=== PATIENT | male | born 1955 | race Caucasian/White ===

== ENCOUNTER 2018-07-06 13:10 | Inpatient (IN) | payer MEDICARE, MEDICAID ==
[~2018-07-06] VITALS: Ht 177.8 cm; Wt 62.8 kg
[~2018-07-06 13:10] MED LIST: ASCO-316 PO; ATOR10TA69 MT; CLOP75TA33 MT; DARU600T PO; DOLU50TA MT; ELVI1TAB2 MT; EMTR1TAB12 MT; HYDR25TA MT; LOPE2CAP PO; MEMA10TA19 MT; METO-396 MT; NORV1 MT; SENN-170 MT; TAMS0.4C31 MT
[2018-07-06 14:40] LABS: BASOPHILS % 0.4 % (0.0-2.0); EOSINOPHILS % 0.8 % (0.0-5.0); HEMATOCRIT. 31.2 % (42.0-52.0); HEMOGLOBIN. 10.6 g/dL (14.0-18.0); LYMPHOCYTES % 25.2 % (20.0-50.0); MEAN CORPUSCULAR HEMOGLOBIN 33.4 pg (28.0-32.0); MEAN CORPUSCULAR VOLUME 98.5 fL (80.0-94.0); MEAN PLATELET VOLUME 7.8 fl (7.4-10.4); MONOCYTES % 8.5 % (2.0-8.0); NEUTROPHILS % 65.1 % (40.0-76.0); PLATELET 225 x1000/uL (130-400); RED BLOOD CELL COUNT 3.17 mill/uL (4.7-6.1); RED CELL DISTRIBUTION WIDTH 15.3 % (11.6-14.6)
[2018-07-06 14:46] LABS: CHLORIDE 96 mEq/L (98-107)
[2018-07-06 14:49] LABS: PARTIAL THROMBOPLASTIN TIME 40.1 sec (23.4-31.0); PROTHROMBIN TIME 10.5 sec (9.1-11.1)
[2018-07-06 14:50] LABS: ETHANOL BLOOD < 10 mg/dL
[2018-07-06 14:52] LABS: PHOSPHORUS 4.2 mg/dL (2.5-4.9)
[2018-07-07] MEDS ORDERED: ONDANSETRON HCL 4MG/2ML INJ IV PRN (01:30)
[2018-07-07] MEDS ORDERED: CLONIDINE 0.1MG TABLET PO PRN (01:30)
[2018-07-07] MEDS ORDERED: DIPHENHYDRAMINE 50MG/ML VIAL IV PRN (01:30)
[2018-07-07] MEDS ORDERED: ACETAMINOPHEN 325MG TABLET PO PRN (01:30)
[2018-07-07 03:00] VITALS: BP 129/83
[2018-07-07] MEDS: SODIUM CHLORIDE 0.9% INJ 3ML FLUSH IVF SCH ×3 (06:47→21:22)
[2018-07-07 08:00] VITALS: BP 126/55
[2018-07-07 08:08] VITALS: BP 126/55
[2018-07-07 11:33] VITALS: BP 109/38
[2018-07-07 13:12] LABS: BASOPHILS % 0.4 % (0.0-2.0); EOSINOPHILS % 0.5 % (0.0-5.0); HEMATOCRIT. 27.3 % (42.0-52.0); HEMOGLOBIN. 9.4 g/dL (14.0-18.0); LYMPHOCYTES % 34.6 % (20.0-50.0); MEAN CORPUSCULAR HEMOGLOBIN 33.6 pg (28.0-32.0); MEAN CORPUSCULAR VOLUME 97.8 fL (80.0-94.0); MEAN PLATELET VOLUME 7.4 fl (7.4-10.4); MONOCYTES % 8.3 % (2.0-8.0); NEUTROPHILS % 56.2 % (40.0-76.0); PLATELET 206 x1000/uL (130-400); RED BLOOD CELL COUNT 2.79 mill/uL (4.7-6.1); RED CELL DISTRIBUTION WIDTH 15.2 % (11.6-14.6)
[2018-07-07 15:33] VITALS: BP 128/38
[2018-07-07 20:00] VITALS: BP 120/50
[2018-07-08] VITALS (7 sets, daily range): BP systolic 114–151; BP diastolic 34–61
[2018-07-08] MEDS: SODIUM CHLORIDE 0.9% INJ 3ML FLUSH IVF SCH ×3 (06:08→23:10)
[2018-07-08 11:18] LABS: BASOPHILS % 0.4 % (0.0-2.0); EOSINOPHILS % 0.3 % (0.0-5.0); LYMPHOCYTES % 15.4 % (20.0-50.0); MEAN CORPUSCULAR HEMOGLOBIN 28.5 pg (28.0-32.0); MEAN CORPUSCULAR VOLUME 88.6 fL (80.0-94.0); MONOCYTES % 4.1 % (2.0-8.0); NEUTROPHILS % 79.8 % (40.0-76.0); PLATELET 95 x1000/uL (130-400); RED BLOOD CELL COUNT 2.29 mill/uL (4.7-6.1); RED CELL DISTRIBUTION WIDTH 19.5 % (11.6-14.6)
[2018-07-08 11:35] LABS: HEMATOCRIT. 20.3 % (42.0-52.0); HEMOGLOBIN. 6.5 g/dL (14.0-18.0)
[2018-07-08 13:50] LABS: HEMATOCRIT 29.7 % (42.0-52.0); HEMOGLOBIN 10.1 g/dL (14.0-18.0)
[2018-07-09] VITALS: BP 125/57
[2018-07-09 04:00] VITALS: BP 153/51
[2018-07-09] MEDS: SODIUM CHLORIDE 0.9% INJ 3ML FLUSH IVF SCH (06:00)
[2018-07-09 08:00] VITALS: BP 108/54
[2018-07-09 09:58] LABS: BASOPHILS % 0.4 % (0.0-2.0); EOSINOPHILS % 0.9 % (0.0-5.0); HEMOGLOBIN. 9.6 g/dL (14.0-18.0); LYMPHOCYTES % 28.4 % (20.0-50.0); MEAN CORPUSCULAR HEMOGLOBIN 33.6 pg (28.0-32.0); MEAN CORPUSCULAR VOLUME 97.7 fL (80.0-94.0); MEAN PLATELET VOLUME 7.9 fl (7.4-10.4); MONOCYTES % 5.4 % (2.0-8.0); NEUTROPHILS % 64.9 % (40.0-76.0); PLATELET 236 x1000/uL (130-400); RED BLOOD CELL COUNT 2.87 mill/uL (4.7-6.1); RED CELL DISTRIBUTION WIDTH 15.2 % (11.6-14.6)
[2018-07-09 10:37] VITALS: BP 108/54
== END 2018-07-09 11:51 | disposition home or self-care (01) | DRG 70 ==
LOC: ER 13:10 → 6WST 19:22 → EDBEDREQ 19:29 → EDBEDREQTM 19:29 → ENRESERV 07-07 00:58
PROVIDERS: ADMIT Internal Medicine; ATTEND Internal Medicine
PROC: 5A1D70Z Performance of Urinary Filtration, Intermittent, Less than 6 Hours Per Day (ICD-10-PCS; principal; 2018-07-09)
DX: G93.41 Metabolic encephalopathy (principal); N18.6 End stage renal disease; I12.0 Hypertensive chronic kidney disease with stage 5 chronic kidney disease or end stage renal disease; I95.9 Hypotension, unspecified; G90.8 Other disorders of autonomic nervous system; E11.22 Type 2 diabetes mellitus with diabetic chronic kidney disease; F48.8 Other specified nonpsychotic mental disorders; F03.90 Unspecified dementia, unspecified severity, without behavioral disturbance, psychotic disturbance, mood disturbance, and anxiety; Z79.899 Other long term (current) drug therapy; Z99.2 Dependence on renal dialysis; Z86.73 Personal history of transient ischemic attack (TIA), and cerebral infarction without residual deficits
CPT/HCPCS: 36415; 70551; 71045; 80048; 80051; 82962; 83735; 83880; 84100; 84484; 85014; 85018; 93005; 99285; C1893; G0482; A4315

== ENCOUNTER 2018-08-12 07:53 | Inpatient (IN) | payer MEDICARE, MEDICAID ==
[~2018-08-12] VITALS: Ht 152.4 cm; Wt 68.0 kg
[2018-08-12 10:38] LABS: PROTHROMBIN TIME 10.4 sec (9.1-11.1)
[2018-08-12 10:39] LABS: CHLORIDE 101 mEq/L (98-107)
[2018-08-12 10:43] LABS: EOSINOPHILS % 0.7 % (0.0-5.0); HEMATOCRIT. 21.1 % (42.0-52.0); HEMOGLOBIN. 7.3 g/dL (14.0-18.0); LYMPHOCYTES % 36.9 % (20.0-50.0); MEAN PLATELET VOLUME 7.6 fl (7.4-10.4); MONOCYTES % 7.5 % (2.0-8.0); NEUTROPHILS % 53.9 % (40.0-76.0); PLATELET 363 x1000/uL (130-400); RED BLOOD CELL COUNT 2.13 mill/uL (4.7-6.1); RED CELL DISTRIBUTION WIDTH 15.7 % (11.6-14.6)
[2018-08-12] MEDS ORDERED: CLONIDINE 0.1MG TABLET PO PRN (13:15)
[2018-08-12] MEDS ORDERED: DIPHENHYDRAMINE 50MG/ML VIAL IV PRN (13:15)
[2018-08-12] MEDS ORDERED: GUAIFENESIN 200MG/10ML SUGAR FREE UDC PO PRN (13:15)
[2018-08-12] MEDS ORDERED: ONDANSETRON HCL 4MG/2ML INJ IV PRN (13:15)
[2018-08-12] MEDS ORDERED: ACETAMINOPHEN 325MG TABLET PO PRN (13:15)
[2018-08-12] MEDS ORDERED: MAGNESIUM/ALUMINUM HYDROXIDE/SIMETHICONE 30ML UDC PO PRN (13:15)
[2018-08-12 13:51] LABS: TOTAL IRON BINDING CAPACITY 167 ug/dL (250-450)
[2018-08-12 18:31] LABS: HEMATOCRIT 24.8 % (42.0-52.0); HEMOGLOBIN 8.3 g/dL (14.0-18.0)
[2018-08-12] MEDS ORDERED: HYDROCODONE/ACETAMINOPHEN 5/325MG TABLET PO PRN (18:45)
[2018-08-13] VITALS: BP 125/44
[2018-08-13 00:18] VITALS: BP 125/50
[2018-08-13 04:00] VITALS: BP 118/46
[2018-08-13 06:08] LABS: HEMATOCRIT. 25.2 % (42.0-52.0); MEAN CORPUSCULAR HEMOGLOBIN 32.4 pg (28.0-32.0); MEAN CORPUSCULAR VOLUME 95.8 fL (80.0-94.0); MEAN PLATELET VOLUME 7.3 fl (7.4-10.4); PLATELET 380 x1000/uL (130-400); RED BLOOD CELL COUNT 2.64 mill/uL (4.7-6.1); RED CELL DISTRIBUTION WIDTH 17.3 % (11.6-14.6)
[2018-08-13 06:59] LABS: HEMOGLOBIN. 8.5 g/dL (14.0-18.0)
[2018-08-13] MEDS: ASCORBIC ACID 500 MG TABLET PO SCH (08:04)
[2018-08-13] MEDS: CLOPIDOGREL 75MG TABLET PO SCH (08:04)
[2018-08-13] MEDS: RITONAVIR 100 MG TABLET PO SCH (08:05)
[2018-08-13] MEDS: DARUNAVIR ETHANOLATE 800 MG TABLET PO SCH (08:05)
[2018-08-13 08:13] LABS: PHOSPHORUS 5.1 mg/dL (2.5-4.9)
[2018-08-13 12:00] VITALS: BP 128/51
[2018-08-13 14:15] LABS: PLATELET ESTIMATE NORMAL
[2018-08-13 16:00] VITALS: BP 126/61
[2018-08-13 20:00] VITALS: BP 132/65
[2018-08-13] MEDS ORDERED: ATORVASTATIN CALCIUM 10MG TABLET PO SCH (21:00)
[2018-08-13] MEDS ORDERED: EPOETIN ALFA 10000UNITS/ML VIAL SUBCUT SCH (21:00)
[2018-08-13] MEDS: SODIUM CHLORIDE 0.9% INJ 3ML FLUSH IVF SCH (22:20)
[2018-08-13] MEDS: GABAPENTIN 100MG CAPSULE PO SCH (22:21)
[2018-08-14] VITALS: BP 118/54
[2018-08-14 04:00] VITALS: BP 101/56
[2018-08-14] MEDS: GABAPENTIN 100MG CAPSULE PO SCH ×2 (05:49→13:31)
[2018-08-14] MEDS: SODIUM CHLORIDE 0.9% INJ 3ML FLUSH IVF SCH ×2 (05:49→13:31)
[2018-08-14 08:29] VITALS: BP 114/66
[2018-08-14] MEDS: CLOPIDOGREL 75MG TABLET PO SCH (10:34)
[2018-08-14] MEDS: RITONAVIR 100 MG TABLET PO SCH (10:34)
[2018-08-14] MEDS: DARUNAVIR ETHANOLATE 800 MG TABLET PO SCH (10:34)
[2018-08-14] MEDS: ASCORBIC ACID 500 MG TABLET PO SCH (10:34)
[2018-08-14 12:00] VITALS: BP 116/52
[2018-08-14 14:38] VITALS: BP 116/52
== END 2018-08-14 17:45 | disposition home or self-care (01) | DRG 314 ==
LOC: ER 08:48 → 8WST 11:06 → ENRESERV 22:17
PROVIDERS: ADMIT Internal Medicine; ATTEND Internal Medicine
PROC: 30233N1 Transfusion of Nonautologous Red Blood Cells into Peripheral Vein, Percutaneous Approach (ICD-10-PCS; principal; 2018-08-12)
PROC: 5A1D70Z Performance of Urinary Filtration, Intermittent, Less than 6 Hours Per Day (ICD-10-PCS; 2018-08-13)
DX: T82.868A Thrombosis due to vascular prosthetic devices, implants and grafts, initial encounter (principal); N18.6 End stage renal disease; E46 Unspecified protein-calorie malnutrition; I12.0 Hypertensive chronic kidney disease with stage 5 chronic kidney disease or end stage renal disease; D64.9 Anemia, unspecified; Z99.2 Dependence on renal dialysis; E11.22 Type 2 diabetes mellitus with diabetic chronic kidney disease; E78.5 Hyperlipidemia, unspecified; L97.529 Non-pressure chronic ulcer of other part of left foot with unspecified severity; F03.90 Unspecified dementia, unspecified severity, without behavioral disturbance, psychotic disturbance, mood disturbance, and anxiety; N40.0 Benign prostatic hyperplasia without lower urinary tract symptoms; Y83.8 Other surgical procedures as the cause of abnormal reaction of the patient, or of later complication, without mention of misadventure at the time of the procedure; Y92.89 Other specified places as the place of occurrence of the external cause; Z86.73 Personal history of transient ischemic attack (TIA), and cerebral infarction without residual deficits; Z68.29 Body mass index [BMI] 29.0-29.9, adult; Z79.4 Long term (current) use of insulin
CPT/HCPCS: 36415; 36430; 76870; 80048; 82962; 83540; 83550; 83735; 84100; 85014; 85018; 86850; 86900; 86920; 93005; 93923; 93976; 99285; A6261; J0885; J1200; P9016

== ENCOUNTER 2018-09-20 16:33 | Emergency (ER) | payer MEDICARE, MEDICAID ==
[~2018-09-20] VITALS: Ht 170.2 cm; Wt 70.0 kg
[2018-09-20 18:53] LABS: BASOPHILS % 0.4 % (0.0-2.0); EOSINOPHILS % 0.6 % (0.0-5.0); HEMATOCRIT. 32.3 % (42.0-52.0); LYMPHOCYTES % 46.4 % (20.0-50.0); MEAN CORPUSCULAR HEMOGLOBIN 33.8 pg (28.0-32.0); MEAN CORPUSCULAR VOLUME 99.5 fL (80.0-94.0); MEAN PLATELET VOLUME 6.8 fl (7.4-10.4); MONOCYTES % 10.5 % (2.0-8.0); NEUTROPHILS % 42.1 % (40.0-76.0); PLATELET 230 x1000/uL (130-400); RED BLOOD CELL COUNT 3.25 mill/uL (4.7-6.1); RED CELL DISTRIBUTION WIDTH 16.3 % (11.6-14.6)
[2018-09-20 18:57] LABS: CHLORIDE 98 mEq/L (98-107)
[2018-09-21 01:00] VITALS: BP 121/70
== END 2018-09-21 01:00 | disposition home or self-care (01) ==
LOC: ER 16:33
DX: S80.02XA Contusion of left knee, initial encounter (principal); R55 Syncope and collapse; F03.90 Unspecified dementia, unspecified severity, without behavioral disturbance, psychotic disturbance, mood disturbance, and anxiety; I12.0 Hypertensive chronic kidney disease with stage 5 chronic kidney disease or end stage renal disease; E11.22 Type 2 diabetes mellitus with diabetic chronic kidney disease; N18.6 End stage renal disease; Z99.2 Dependence on renal dialysis; W18.39XA Other fall on same level, initial encounter; Y93.89 Activity, other specified; Y92.89 Other specified places as the place of occurrence of the external cause; Y99.8 Other external cause status; Z79.899 Other long term (current) drug therapy
CPT/HCPCS: 36415; 71045; 73562; 82962; 83880; 84484; 93005; 99284

== ENCOUNTER → 2019-05-02 | Emergency (ER) | payer MEDICARE, MEDICAID ==
[~2019-05-02] VITALS: Ht 172.7 cm; Wt 77.0 kg
[~2019-05-02] MED LIST changes: +ACETAMINOPHEN 325MG TABLET PO ONE; +SODIUM CHLORIDE 0.9% 500 ML IV ONE
[2019-05-02 13:30] VITALS: BP 100/55
== END | disposition left against medical advice (07) ==
LOC: ER 08:45
DX: S32.592A Other specified fracture of left pubis, initial encounter for closed fracture (principal); M86.8X7 Other osteomyelitis, ankle and foot; E11.22 Type 2 diabetes mellitus with diabetic chronic kidney disease; I13.11 Hypertensive heart and chronic kidney disease without heart failure, with stage 5 chronic kidney disease, or end stage renal disease; N18.6 End stage renal disease; Z99.2 Dependence on renal dialysis; W05.0XXA Fall from non-moving wheelchair, initial encounter; Y93.89 Activity, other specified; Y92.89 Other specified places as the place of occurrence of the external cause
CPT/HCPCS: 73522; 73590; 73610; 73630; 99284; J7030

== ENCOUNTER 2019-05-18 21:19 | Inpatient (IN) | payer MEDICARE, MEDICAID ==
[~2019-05-18] VITALS: Ht 177.8 cm; Wt 72.6 kg
[~2019-05-18 21:19] MED LIST changes: -ACETAMINOPHEN 325MG TABLET PO ONE; -MEMA10TA19 MT; +MEMA10TA55 MT; -SODIUM CHLORIDE 0.9% 500 ML IV ONE
[2019-05-18] MEDS ORDERED: ONDANSETRON HCL 4MG/2ML INJ IV ONE (22:30)
[2019-05-18] MEDS ORDERED: MORPHINE SULFATE 4 MG/ML CPJ (NOT FOR IM USE) IV ONE (22:30)
[2019-05-18 22:44] LABS: BASOPHILS % 0.4 % (0.0-2.0); EOSINOPHILS % 0.7 % (0.0-5.0); HEMATOCRIT. 29.8 % (42.0-52.0); HEMOGLOBIN. 10.2 g/dL (14.0-18.0); LYMPHOCYTES % 33.3 % (20.0-50.0); MEAN CORPUSCULAR HEMOGLOBIN 33.4 pg (28.0-32.0); MEAN CORPUSCULAR VOLUME 97.6 fL (80.0-94.0); MEAN PLATELET VOLUME 7.3 fl (7.4-10.4); MONOCYTES % 6.6 % (2.0-8.0); PLATELET 254 x1000/uL (130-400); RED BLOOD CELL COUNT 3.06 mill/uL (4.7-6.1); RED CELL DISTRIBUTION WIDTH 15.4 % (11.6-14.6)
[2019-05-18 22:51] LABS: CHLORIDE 102 mEq/L (98-107); INR 1.1; PROTHROMBIN TIME 11.4 sec (9.6-11.0)
[2019-05-18] MEDS ORDERED: DEXTROSE 50% WATER 50ML SYRINGE IV ONE (23:30)
[2019-05-18] MEDS ORDERED: SODIUM BICARBONATE 8.4% 1 MEQ/ML 50ML SYR IV ONE (23:30)
[2019-05-18] MEDS ORDERED: INSULIN REGULAR (HUMULIN R) 300UNITS/3ML IV ONE (23:30)
[2019-05-18] MEDS ORDERED: CALCIUM CHLORIDE 1GM/10ML SYR IV ONE (23:30)
[2019-05-18] MEDS ORDERED: MAGNESIUM/ALUMINUM HYDROXIDE/SIMETHICONE 30ML UDC PO PRN (23:45)
[2019-05-18] MEDS ORDERED: HYDROCODONE/ACETAMINOPHEN 5/325MG TABLET PO PRN (23:45)
[2019-05-18] MEDS ORDERED: CLONIDINE 0.1MG TABLET PO PRN (23:45)
[2019-05-18] MEDS ORDERED: MORPHINE SULFATE 2 MG/ML CPJ (NOT FOR IM USE) IV PRN (23:45)
[2019-05-19 03:09] VITALS: BP 122/50
[2019-05-19] MEDS ORDERED: SODIUM CHLORIDE 0.9% 500 ML IV ONE (08:00)
[2019-05-19 08:26] VITALS: BP 79/18
[2019-05-19] MEDS: ASPIRIN 81MG EC TABLET PO SCH (08:55)
[2019-05-19] MEDS: THIAMINE HCL 100MG TABLET PO SCH (08:56)
[2019-05-19 12:32] VITALS: BP 84/28
[2019-05-19] MEDS: ENOXAPARIN 30MG/0.3ML SYR SUBCUT SCH (13:17)
[2019-05-19] MEDS ORDERED: DEXTROSE 50% WATER 50ML SYRINGE IV PRN (15:45)
[2019-05-19 16:08] VITALS: BP 92/30
[2019-05-19] MEDS: MIDODRINE HCL 5MG TABLET PO SCH (16:20)
[2019-05-19] MEDS: BLOOD SUGAR DIAGNOSTIC STRIP TEST SCH ×2 (17:20→20:38)
[2019-05-19] MEDS: INSULIN LISPRO 100 UNITS/ML SUBCUT SCH ×2 (18:11→20:38)
[2019-05-19 20:00] VITALS: BP 98/41
[2019-05-19 20:51] VITALS: BP 98/41
[2019-05-20] VITALS: BP 90/24
[2019-05-20 04:00] VITALS: BP 88/37
[2019-05-20 06:10] LABS: BASOPHILS % 0.5 % (0.0-2.0); EOSINOPHILS % 0.2 % (0.0-5.0); HEMATOCRIT. 31.9 % (42.0-52.0); HEMOGLOBIN. 10.6 g/dL (14.0-18.0); LYMPHOCYTES % 32.8 % (20.0-50.0); MEAN CORPUSCULAR HEMOGLOBIN 33.4 pg (28.0-32.0); MEAN CORPUSCULAR VOLUME 100.1 fL (80.0-94.0); MEAN PLATELET VOLUME 8.3 fl (7.4-10.4); NEUTROPHILS % 59.5 % (40.0-76.0); PLATELET 255 x1000/uL (130-400); RED BLOOD CELL COUNT 3.19 mill/uL (4.7-6.1); RED CELL DISTRIBUTION WIDTH 15.8 % (11.6-14.6)
[2019-05-20] MEDS: BLOOD SUGAR DIAGNOSTIC STRIP TEST SCH ×4 (06:36→20:43)
[2019-05-20] MEDS: INSULIN LISPRO 100 UNITS/ML SUBCUT SCH ×4 (07:50→20:43)
[2019-05-20 08:00] VITALS: BP 107/35
[2019-05-20] MEDS: MIDODRINE HCL 5MG TABLET PO SCH ×3 (10:28→17:57)
[2019-05-20] MEDS: ASPIRIN 81MG EC TABLET PO SCH (10:28)
[2019-05-20] MEDS: THIAMINE HCL 100MG TABLET PO SCH (10:28)
[2019-05-20] MEDS: ENOXAPARIN 30MG/0.3ML SYR SUBCUT SCH (10:29)
[2019-05-20 12:00] VITALS: BP 114/23
[2019-05-20 16:00] VITALS: BP 83/39
[2019-05-20] MEDS ORDERED: DIATR MEGLU/DIATRIZOATE SOLN 30ML PO SCH (18:00)
[2019-05-20 20:00] VITALS: BP 93/30
[2019-05-21] VITALS: BP 91/28
[2019-05-21 04:00] VITALS: BP 93/33
[2019-05-21] MEDS: BLOOD SUGAR DIAGNOSTIC STRIP TEST SCH ×4 (06:24→21:00)
[2019-05-21 06:37] LABS: BASOPHILS % 0.5 % (0.0-2.0); EOSINOPHILS % 0.8 % (0.0-5.0); HEMATOCRIT. 28.7 % (42.0-52.0); LYMPHOCYTES % 30.9 % (20.0-50.0); MEAN CORPUSCULAR HEMOGLOBIN 33.2 pg (28.0-32.0); MEAN CORPUSCULAR VOLUME 95.3 fL (80.0-94.0); MEAN PLATELET VOLUME 8.1 fl (7.4-10.4); MONOCYTES % 8.4 % (2.0-8.0); NEUTROPHILS % 59.4 % (40.0-76.0); PLATELET 252 x1000/uL (130-400); RED BLOOD CELL COUNT 3.02 mill/uL (4.7-6.1); RED CELL DISTRIBUTION WIDTH 15.5 % (11.6-14.6)
[2019-05-21] MEDS: INSULIN LISPRO 100 UNITS/ML SUBCUT SCH ×4 (07:50→20:41)
[2019-05-21 08:00] VITALS: BP 122/27
[2019-05-21] MEDS: MIDODRINE HCL 5MG TABLET PO SCH ×3 (10:09→18:02)
[2019-05-21] MEDS: FOLIC ACID/VITAMIN B COMP W-C TABLET PO SCH (10:09)
[2019-05-21] MEDS: ENOXAPARIN 30MG/0.3ML SYR SUBCUT SCH (10:10)
[2019-05-21] MEDS: THIAMINE HCL 100MG TABLET PO SCH (10:10)
[2019-05-21] MEDS: ASPIRIN 81MG EC TABLET PO SCH (10:16)
[2019-05-21 12:00] VITALS: BP 99/29
[2019-05-21 13:10] LABS: HIV 1 ABS Positive (Negative); HIV 2 ABS Negative (Negative); HIV SCREEN 4G Reactive (Non Reactive); INTERPRETATION HIV-1 Positive (.)
[2019-05-21 16:00] VITALS: BP 100/30
[2019-05-21 20:00] VITALS: BP 97/71
[2019-05-21] MEDS: LORAZEPAM 2MG/ML CPJ IV PRN (20:42)
[2019-05-22] VITALS: BP 75/25
[2019-05-22] MEDS: SODIUM CHLORIDE 0.9% 1,000 ML IV SCH (00:23)
[2019-05-22 04:00] VITALS: BP 94/32
[2019-05-22] MEDS: BLOOD SUGAR DIAGNOSTIC STRIP TEST SCH ×4 (06:16→21:00)
[2019-05-22] MEDS: INSULIN LISPRO 100 UNITS/ML SUBCUT SCH ×4 (07:50→22:50)
[2019-05-22 08:00] VITALS: BP 97/14
[2019-05-22 09:06] LABS: ABSOLUTE LYMPHOCYTES 1.1 x10E3/uL (0.7-3.1); ABSOLUTE MONOCYTES 0.4 x10E3/uL (0.1-0.9); ABSOLUTE NEUTROPHILS 3.7 x10E3/uL (1.4-7.0); BASOPHILS 0 % (Not Estab.); HEMATOCRIT 27.5 % (37.5-51.0); HEMOGLOBIN 8.9 g/dL (13.0-17.7); IMMATURE GRANULOCYTES 0 % (Not Estab.); LYMPHOCYTES 21 % (Not Estab.); MEAN CORPUSCULAR HEMOGLOBIN 31.1 pg (26.6-33.0); MEAN CORPUSCULAR HGB CONC. 32.4 g/dL (31.5-35.7); MEAN CORPUSCULAR VOLUME 96 fL (79-97); MONOCYTES 8 % (Not Estab.); NEUTROPHILS 70 % (Not Estab.); PLATELETS 283 x10E3/uL (150-450); RBC 2.86 x10E6/uL (4.14-5.80); RED CELL DISTRIBUTION WIDTH 15.3 % (12.3-15.4); WBC 5.3 x10E3/uL (3.4-10.8)
[2019-05-22] MEDS: ASPIRIN 81MG EC TABLET PO SCH (09:12)
[2019-05-22] MEDS: ENOXAPARIN 30MG/0.3ML SYR SUBCUT SCH (09:12)
[2019-05-22] MEDS: FOLIC ACID/VITAMIN B COMP W-C TABLET PO SCH (09:12)
[2019-05-22] MEDS: THIAMINE HCL 100MG TABLET PO SCH (09:12)
[2019-05-22] MEDS: MIDODRINE HCL 5MG TABLET PO SCH ×3 (09:13→17:45)
[2019-05-22 12:00] VITALS: BP 91/23
[2019-05-22 13:10] LABS: % CD 3 POS. LYMPHOCYTES 78.1 % (57.5-86.2); % CD 4 POS. LYMPHOCYTES 27.1 % (30.8-58.5); % CD 8 POS. LYMPH 51.2 % (12.0-35.5); ABSOLUTE CD 3 859 /uL (622-2402); ABSOLUTE CD 4 HELPER 298 /uL (359-1519); ABSOLUTE CD 8 SUPPRESSOR 563 /uL (109-897); CD4/CD8 RATIO 0.53 (0.92-3.72)
[2019-05-22 16:00] VITALS: BP 85/23
[2019-05-22] MEDS ORDERED: ALBUMIN HUMAN 25GM/100ML (25%) IV SCH (18:00)
[2019-05-22 20:00] VITALS: BP 156/108
[2019-05-23] VITALS: BP 102/45
[2019-05-23] MEDS: SODIUM CHLORIDE 0.9% 1,000 ML IV SCH
[2019-05-23 04:00] VITALS: BP 99/45
[2019-05-23] MEDS: BLOOD SUGAR DIAGNOSTIC STRIP TEST SCH ×4 (06:36→20:58)
[2019-05-23 06:55] LABS: BASOPHILS % 0.3 % (0.0-2.0); EOSINOPHILS % 0.3 % (0.0-5.0); HEMATOCRIT. 27.5 % (42.0-52.0); HEMOGLOBIN. 9.5 g/dL (14.0-18.0); LYMPHOCYTES % 32.9 % (20.0-50.0); MEAN CORPUSCULAR HEMOGLOBIN 33.4 pg (28.0-32.0); MEAN CORPUSCULAR VOLUME 96.4 fL (80.0-94.0); MEAN PLATELET VOLUME 8.4 fl (7.4-10.4); MONOCYTES % 10.7 % (2.0-8.0); NEUTROPHILS % 55.8 % (40.0-76.0); PLATELET 285 x1000/uL (130-400); RED BLOOD CELL COUNT 2.85 mill/uL (4.7-6.1); RED CELL DISTRIBUTION WIDTH 16.1 % (11.6-14.6)
[2019-05-23] MEDS: INSULIN LISPRO 100 UNITS/ML SUBCUT SCH ×4 (07:44→20:58)
[2019-05-23 08:00] VITALS: BP 95/30
[2019-05-23] MEDS: ASPIRIN 81MG EC TABLET PO SCH (08:06)
[2019-05-23] MEDS: FOLIC ACID/VITAMIN B COMP W-C TABLET PO SCH (08:06)
[2019-05-23] MEDS: THIAMINE HCL 100MG TABLET PO SCH (08:06)
[2019-05-23] MEDS: MIDODRINE HCL 5MG TABLET PO SCH ×4 (08:07→17:35)
[2019-05-23] MEDS: ENOXAPARIN 30MG/0.3ML SYR SUBCUT SCH (08:07)
[2019-05-23 12:00] VITALS: BP 92/46
[2019-05-23] MEDS: RISPERIDONE 1MG TABLET PO SCH (12:45)
[2019-05-23] MEDS: LORAZEPAM 2MG/ML CPJ IV PRN (14:08)
[2019-05-23 16:00] VITALS: BP_SYST 149; BP_SYST 97; BP_DIAS 39; BP_DIAS 57
[2019-05-23 20:00] VITALS: BP 97/36
[2019-05-23] MEDS: CARVEDILOL 3.125 MG TABLET PO SCH (20:57)
[2019-05-24] VITALS (21 sets, daily range): BP systolic 44–139; BP diastolic 22–94
[2019-05-24] MEDS: BLOOD SUGAR DIAGNOSTIC STRIP TEST SCH ×4 (06:40→22:30)
[2019-05-24] MEDS: INSULIN LISPRO 100 UNITS/ML SUBCUT SCH ×4 (07:50→21:00)
[2019-05-24] MEDS: CARVEDILOL 3.125 MG TABLET PO SCH ×2 (09:00→23:00)
[2019-05-24] MEDS: THIAMINE HCL 100MG TABLET PO SCH (09:38)
[2019-05-24] MEDS: RISPERIDONE 1MG TABLET PO SCH (09:38)
[2019-05-24] MEDS: FOLIC ACID/VITAMIN B COMP W-C TABLET PO SCH (09:38)
[2019-05-24] MEDS: ASPIRIN 81MG EC TABLET PO SCH (09:38)
[2019-05-24] MEDS: MIDODRINE HCL 5MG TABLET PO SCH ×3 (09:38→19:31)
[2019-05-24] MEDS: ENOXAPARIN 30MG/0.3ML SYR SUBCUT SCH (09:39)
[2019-05-24 18:32] LABS: BASOPHILS % 0.2 % (0.0-2.0); EOSINOPHILS % 0.2 % (0.0-5.0); HEMATOCRIT. 28.2 % (42.0-52.0); HEMOGLOBIN. 9.6 g/dL (14.0-18.0); LYMPHOCYTES % 19.4 % (20.0-50.0); MEAN CORPUSCULAR HEMOGLOBIN 33.1 pg (28.0-32.0); MEAN CORPUSCULAR VOLUME 97.5 fL (80.0-94.0); MEAN PLATELET VOLUME 8.9 fl (7.4-10.4); MONOCYTES % 8.7 % (2.0-8.0); NEUTROPHILS % 71.5 % (40.0-76.0); PLATELET 265 x1000/uL (130-400); RED BLOOD CELL COUNT 2.89 mill/uL (4.7-6.1)
[2019-05-24] MEDS ORDERED: DIGOXIN 500MCG/2ML AMP IV NR ×2 (21:45→22:30)
[2019-05-24 22:09] LABS: BG BASE EXCESS 0.4 mmol/L (-2.0-2.0); BG DEOXYHEMOGLOBIN 0.5 % (0.0-5.0); BG FRACTION INSPIRED OXYGEN 100; BG METHEMOGLOBIN 0.3 % (0.0-1.5); BG OXYGEN SATURATION 99.5 % (92.0-98.5); BG OXYHEMOGLOBIN 99.2 % (94.0-97.0); BG PCO2 22.6 mmHg (35.0-45.0); BG PH 7.587 (7.350-7.450); BG PO2 418.7 mmHg (75.0-100.0); BG SAMPLE SITE RIGHT RADIAL; BG TOTAL HEMOGLOBIN 10.4 g/dL (12.0-18.0); BG VENT MODE MASK - NRB
[2019-05-24] MEDS ORDERED: VASOPRESSIN 10 UNIT in SODIUM CHLORIDE 0.9% 99.5 ML IV PRN (22:30)
[2019-05-24] MEDS ORDERED: SODIUM CHLORIDE 0.9% 500 ML IV NR (22:30)
[2019-05-24] MEDS: SODIUM CHLORIDE 0.9% 1,000 ML IV SCH (22:52)
[2019-05-24] MEDS: PHENYLEPHRINE 40 MG in DEXT 5% WATER 246 ML IV PRN (22:56)
[2019-05-24] MEDS ORDERED: ADENOSINE 3 MG/ML 2ML VIAL IV NR (23:15)
[2019-05-24] MEDS ORDERED: SODIUM CHLORIDE 0.9% 500 ML IV ONE (23:30)
[2019-05-25] VITALS (80 sets, daily range): BP systolic 29–158; BP diastolic 15–120
[2019-05-25] MEDS ORDERED: NOREPINEPHRINE 4MG/250ML PMX 250 ML IV PRN (00:15)
[2019-05-25] MEDS ORDERED: NOREPINEPHRINE 4 MG in DEXTROSE 5% WATER 250 ML IV PRN (00:30)
[2019-05-25] MEDS: PHENYLEPHRINE 40 MG in DEXT 5% WATER 246 ML IV PRN ×3 (03:26→21:39)
[2019-05-25] MEDS: NOREPINEPHRINE 16 MG in DEXT 5% WATER 234 ML IV PRN ×3 (03:26→21:42)
[2019-05-25 06:17] LABS: BASOPHILS % 0.2 % (0.0-2.0); EOSINOPHILS % 0.1 % (0.0-5.0); HEMATOCRIT. 28.5 % (42.0-52.0); HEMOGLOBIN. 9.7 g/dL (14.0-18.0); LYMPHOCYTES % 21.4 % (20.0-50.0); MEAN CORPUSCULAR HEMOGLOBIN 33.5 pg (28.0-32.0); MEAN CORPUSCULAR VOLUME 98.4 fL (80.0-94.0); MEAN PLATELET VOLUME 8.6 fl (7.4-10.4); MONOCYTES % 7.4 % (2.0-8.0); NEUTROPHILS % 70.9 % (40.0-76.0); PLATELET 263 x1000/uL (130-400); RED CELL DISTRIBUTION WIDTH 15.6 % (11.6-14.6)
[2019-05-25 06:24] LABS: CHLORIDE 103 mEq/L (98-107)
[2019-05-25] MEDS: CARVEDILOL 3.125 MG TABLET PO SCH ×2 (08:43→21:00)
[2019-05-25] MEDS: BLOOD SUGAR DIAGNOSTIC STRIP TEST SCH ×4 (08:50→21:19)
[2019-05-25] MEDS: THIAMINE HCL 100MG TABLET PO SCH (09:00)
[2019-05-25] MEDS: ASPIRIN 81MG EC TABLET PO SCH (09:00)
[2019-05-25] MEDS: FOLIC ACID/VITAMIN B COMP W-C TABLET PO SCH (09:00)
[2019-05-25] MEDS: ENOXAPARIN 30MG/0.3ML SYR SUBCUT SCH (09:12)
[2019-05-25] MEDS: INSULIN LISPRO 100 UNITS/ML SUBCUT SCH ×4 (09:16→21:45)
[2019-05-25] MEDS: MIDODRINE HCL 5MG TABLET PO SCH ×3 (09:20→17:00)
[2019-05-25] MEDS: RISPERIDONE 1MG TABLET PO SCH (09:32)
[2019-05-25] MEDS: SODIUM CHLORIDE 0.9% 1,000 ML IV SCH (09:54)
[2019-05-25] MEDS ORDERED: PIPERACILLIN/TAZOBACTAM 3.375 G in DEXT 5% WATER 100 ML IV SCH (10:45)
[2019-05-25] MEDS: PIPERACILLIN/TAZOBACTAM 2.25 G in DEXTROSE 5% WATER 50 ML IV SCH ×2 (14:19→22:41)
[2019-05-25] MEDS ORDERED: DIGOXIN 500MCG/2ML AMP IV NR (19:10)
[2019-05-25] MEDS ORDERED: DIGOXIN 500MCG/2ML AMP IV PRN (21:15)
[2019-05-26] VITALS (93 sets, daily range): BP systolic 66–143; BP diastolic 23–98
[2019-05-26] MEDS: PHENYLEPHRINE 40 MG in DEXT 5% WATER 246 ML IV PRN ×3 (04:50→17:36)
[2019-05-26] MEDS: PIPERACILLIN/TAZOBACTAM 2.25 G in DEXTROSE 5% WATER 50 ML IV SCH ×3 (05:22→21:36)
[2019-05-26 06:28] LABS: BASOPHILS % 0.3 % (0.0-2.0); EOSINOPHILS % 0.3 % (0.0-5.0); HEMATOCRIT. 31.4 % (42.0-52.0); HEMOGLOBIN. 10.4 g/dL (14.0-18.0); LYMPHOCYTES % 28.9 % (20.0-50.0); MEAN CORPUSCULAR HEMOGLOBIN 33.1 pg (28.0-32.0); MEAN CORPUSCULAR VOLUME 99.5 fL (80.0-94.0); MEAN PLATELET VOLUME 9.2 fl (7.4-10.4); MONOCYTES % 8.7 % (2.0-8.0); NEUTROPHILS % 61.8 % (40.0-76.0); PLATELET 184 x1000/uL (130-400); RED BLOOD CELL COUNT 3.15 mill/uL (4.7-6.1); RED CELL DISTRIBUTION WIDTH 15.9 % (11.6-14.6)
[2019-05-26] MEDS: CARVEDILOL 3.125 MG TABLET PO SCH ×2 (08:17→21:00)
[2019-05-26] MEDS: BLOOD SUGAR DIAGNOSTIC STRIP TEST SCH ×4 (08:17→21:21)
[2019-05-26] MEDS: THIAMINE HCL 100MG TABLET PO SCH (08:33)
[2019-05-26] MEDS: ASPIRIN 81MG EC TABLET PO SCH (08:33)
[2019-05-26] MEDS: FOLIC ACID/VITAMIN B COMP W-C TABLET PO SCH (08:33)
[2019-05-26] MEDS: MIDODRINE HCL 5MG TABLET PO SCH ×3 (08:33→17:22)
[2019-05-26] MEDS: ENOXAPARIN 30MG/0.3ML SYR SUBCUT SCH (08:34)
[2019-05-26] MEDS: INSULIN LISPRO 100 UNITS/ML SUBCUT SCH ×4 (08:34→21:00)
[2019-05-26] MEDS ORDERED: SODIUM POLYSTYRENE SULFONATE 15 G/60 ML BOT PO NR (10:30)
[2019-05-26] MEDS: SODIUM CHLORIDE 0.9% 1,000 ML IV SCH (13:15)
[2019-05-26] MEDS: NOREPINEPHRINE 16 MG in DEXT 5% WATER 234 ML IV PRN (17:36)
[2019-05-26] MEDS: BUDESONIDE 0.5MG/2ML NEB HHN SCH (20:06)
[2019-05-27] VITALS (75 sets, daily range): BP systolic 67–182; BP diastolic 24–121
[2019-05-27] MEDS: PHENYLEPHRINE 40 MG in DEXT 5% WATER 246 ML IV PRN ×3 (01:12→13:25)
[2019-05-27] MEDS: PIPERACILLIN/TAZOBACTAM 2.25 G in DEXTROSE 5% WATER 50 ML IV SCH ×3 (06:37→21:46)
[2019-05-27 07:13] LABS: BASOPHILS % 0.3 % (0.0-2.0); EOSINOPHILS % 0.1 % (0.0-5.0); HEMATOCRIT. 36.6 % (42.0-52.0); HEMOGLOBIN. 11.9 g/dL (14.0-18.0); LYMPHOCYTES % 21.9 % (20.0-50.0); MEAN CORPUSCULAR HEMOGLOBIN 32.9 pg (28.0-32.0); MEAN CORPUSCULAR VOLUME 101.2 fL (80.0-94.0); MEAN PLATELET VOLUME 9.8 fl (7.4-10.4); NEUTROPHILS % 63.7 % (40.0-76.0); PLATELET 183 x1000/uL (130-400); RED BLOOD CELL COUNT 3.62 mill/uL (4.7-6.1); RED CELL DISTRIBUTION WIDTH 16.2 % (11.6-14.6)
[2019-05-27] MEDS: IPRATROPIUM/ALBUTEROL 0.5-3(2.5)MG/3ML NEB HHN PRN ×2 (08:06→21:24)
[2019-05-27] MEDS: BUDESONIDE 0.5MG/2ML NEB HHN SCH ×2 (08:06→21:24)
[2019-05-27] MEDS: BLOOD SUGAR DIAGNOSTIC STRIP TEST SCH ×4 (08:06→20:29)
[2019-05-27] MEDS: THIAMINE HCL 100MG TABLET PO SCH (08:33)
[2019-05-27] MEDS: MIDODRINE HCL 5MG TABLET PO SCH ×3 (08:33→18:38)
[2019-05-27] MEDS: ASPIRIN 81MG EC TABLET PO SCH (08:34)
[2019-05-27] MEDS: FOLIC ACID/VITAMIN B COMP W-C TABLET PO SCH (08:34)
[2019-05-27] MEDS: ENOXAPARIN 30MG/0.3ML SYR SUBCUT SCH (08:34)
[2019-05-27] MEDS: CARVEDILOL 3.125 MG TABLET PO SCH ×2 (08:36→21:45)
[2019-05-27] MEDS: INSULIN LISPRO 100 UNITS/ML SUBCUT SCH ×4 (08:36→20:30)
[2019-05-28] VITALS (71 sets, daily range): BP systolic 58–196; BP diastolic 24–103
[2019-05-28] MEDS: PHENYLEPHRINE 40 MG in DEXT 5% WATER 246 ML IV PRN ×3 (03:51→15:25)
[2019-05-28] MEDS: PIPERACILLIN/TAZOBACTAM 2.25 G in DEXTROSE 5% WATER 50 ML IV SCH ×3 (05:45→21:45)
[2019-05-28 07:58] LABS: BASOPHILS % 0.3 % (0.0-2.0); EOSINOPHILS % 0.8 % (0.0-5.0); HEMATOCRIT. 30.8 % (42.0-52.0); HEMOGLOBIN. 10.3 g/dL (14.0-18.0); LYMPHOCYTES % 21.7 % (20.0-50.0); MEAN CORPUSCULAR HEMOGLOBIN 33.2 pg (28.0-32.0); MEAN PLATELET VOLUME 9.7 fl (7.4-10.4); MONOCYTES % 10.7 % (2.0-8.0); NEUTROPHILS % 66.5 % (40.0-76.0); PLATELET 154 x1000/uL (130-400); RED BLOOD CELL COUNT 3.11 mill/uL (4.7-6.1); RED CELL DISTRIBUTION WIDTH 16.1 % (11.6-14.6)
[2019-05-28] MEDS: BUDESONIDE 0.5MG/2ML NEB HHN SCH (08:05)
[2019-05-28] MEDS: INSULIN LISPRO 100 UNITS/ML SUBCUT SCH ×4 (08:20→21:00)
[2019-05-28] MEDS: BLOOD SUGAR DIAGNOSTIC STRIP TEST SCH ×4 (08:40→21:03)
[2019-05-28] MEDS: CARVEDILOL 3.125 MG TABLET PO SCH ×2 (08:41→21:15)
[2019-05-28] MEDS: FOLIC ACID/VITAMIN B COMP W-C TABLET PO SCH (08:49)
[2019-05-28] MEDS: ENOXAPARIN 30MG/0.3ML SYR SUBCUT SCH (08:49)
[2019-05-28] MEDS: MIDODRINE HCL 5MG TABLET PO SCH ×3 (08:49→17:10)
[2019-05-28] MEDS: ASPIRIN 81MG EC TABLET PO SCH (08:49)
[2019-05-28] MEDS: THIAMINE HCL 100MG TABLET PO SCH (08:49)
[2019-05-28] MEDS ORDERED: PHENYLEPHRINE 40 MG in DEXT 5% WATER 500 ML IV PRN (18:23)
[2019-05-28] MEDS: SODIUM CHLORIDE 0.9% 1,000 ML IV SCH (19:15)
[2019-05-28] MEDS: PHENYLEPHRINE 80 MG in DEXT 5% WATER 492 ML IV PRN (22:02)
[2019-05-29] VITALS (77 sets, daily range): BP systolic 58–146; BP diastolic 21–101
[2019-05-29] MEDS: PIPERACILLIN/TAZOBACTAM 2.25 G in DEXTROSE 5% WATER 50 ML IV SCH ×3 (05:36→21:10)
[2019-05-29 06:35] LABS: BASOPHILS % 0.2 % (0.0-2.0); EOSINOPHILS % 0.6 % (0.0-5.0); HEMATOCRIT. 28.3 % (42.0-52.0); HEMOGLOBIN. 9.6 g/dL (14.0-18.0); LYMPHOCYTES % 30.4 % (20.0-50.0); MEAN CORPUSCULAR HEMOGLOBIN 33.3 pg (28.0-32.0); MEAN CORPUSCULAR VOLUME 98.3 fL (80.0-94.0); MEAN PLATELET VOLUME 9.9 fl (7.4-10.4); MONOCYTES % 10.1 % (2.0-8.0); NEUTROPHILS % 58.7 % (40.0-76.0); PLATELET 138 x1000/uL (130-400); RED BLOOD CELL COUNT 2.88 mill/uL (4.7-6.1); RED CELL DISTRIBUTION WIDTH 16.1 % (11.6-14.6)
[2019-05-29] MEDS: BLOOD SUGAR DIAGNOSTIC STRIP TEST SCH ×4 (07:50→21:09)
[2019-05-29] MEDS: INSULIN LISPRO 100 UNITS/ML SUBCUT SCH ×4 (08:16→21:00)
[2019-05-29] MEDS: CARVEDILOL 3.125 MG TABLET PO SCH ×2 (09:00→21:00)
[2019-05-29] MEDS: BUDESONIDE 0.5MG/2ML NEB HHN SCH ×2 (09:33→20:51)
[2019-05-29] MEDS: PHENYLEPHRINE 80 MG in DEXT 5% WATER 492 ML IV PRN ×2 (10:06→21:15)
[2019-05-29] MEDS: MIDODRINE HCL 5MG TABLET PO SCH ×3 (11:17→17:00)
[2019-05-29] MEDS: FOLIC ACID/VITAMIN B COMP W-C TABLET PO SCH (11:23)
[2019-05-29] MEDS: THIAMINE HCL 100MG TABLET PO SCH (11:23)
[2019-05-29] MEDS: ASPIRIN 81MG EC TABLET PO SCH (11:23)
[2019-05-29] MEDS: ENOXAPARIN 30MG/0.3ML SYR SUBCUT SCH (11:26)
[2019-05-29] MEDS: SODIUM CHLORIDE 0.9% 1,000 ML IV SCH (16:55)
[2019-05-30] VITALS (81 sets, daily range): BP systolic 64–167; BP diastolic 16–73
[2019-05-30] MEDS: PIPERACILLIN/TAZOBACTAM 2.25 G in DEXTROSE 5% WATER 50 ML IV SCH ×3 (05:35→22:26)
[2019-05-30 05:57] LABS: BASOPHILS % 0.4 % (0.0-2.0); EOSINOPHILS % 0.2 % (0.0-5.0); HEMATOCRIT. 26.8 % (42.0-52.0); HEMOGLOBIN. 9.3 g/dL (14.0-18.0); LYMPHOCYTES % 21.8 % (20.0-50.0); MEAN CORPUSCULAR HEMOGLOBIN 33.9 pg (28.0-32.0); MEAN CORPUSCULAR VOLUME 97.9 fL (80.0-94.0); MEAN PLATELET VOLUME 9.8 fl (7.4-10.4); MONOCYTES % 8.6 % (2.0-8.0); PLATELET 124 x1000/uL (130-400); RED BLOOD CELL COUNT 2.74 mill/uL (4.7-6.1); RED CELL DISTRIBUTION WIDTH 17.1 % (11.6-14.6)
[2019-05-30] MEDS: PHENYLEPHRINE 80 MG in DEXT 5% WATER 492 ML IV PRN (06:57)
[2019-05-30] MEDS: BLOOD SUGAR DIAGNOSTIC STRIP TEST SCH ×4 (07:50→21:55)
[2019-05-30] MEDS: ENOXAPARIN 30MG/0.3ML SYR SUBCUT SCH (08:54)
[2019-05-30] MEDS: FOLIC ACID/VITAMIN B COMP W-C TABLET PO SCH (08:54)
[2019-05-30] MEDS: MIDODRINE HCL 5MG TABLET PO SCH ×3 (08:54→22:25)
[2019-05-30] MEDS: THIAMINE HCL 100MG TABLET PO SCH (08:55)
[2019-05-30] MEDS: ASPIRIN 81MG EC TABLET PO SCH (08:55)
[2019-05-30] MEDS: CARVEDILOL 3.125 MG TABLET PO SCH ×2 (08:55→21:00)
[2019-05-30] MEDS: INSULIN LISPRO 100 UNITS/ML SUBCUT SCH ×4 (08:56→21:00)
[2019-05-30] MEDS ORDERED: PHENYLEPHRINE 80 MG in DEXT 5% WATER 492 ML IV PRN (10:32)
[2019-05-30] MEDS: SODIUM CHLORIDE 0.9% 1,000 ML IV SCH ×3 (11:46→11:48)
[2019-05-30 13:16] LABS: TOTAL IRON BINDING CAPACITY 166 ug/dL (250-450)
[2019-05-30] MEDS: PHENYLEPHRINE 80 MG in DEXT 5% WATER 500 ML IV PRN (18:01)
[2019-05-31] VITALS (92 sets, daily range): BP systolic 41–154; BP diastolic 23–112
[2019-05-31] MEDS: SODIUM CHLORIDE 0.9% 1,000 ML IV SCH (05:44)
[2019-05-31] MEDS: PIPERACILLIN/TAZOBACTAM 2.25 G in DEXTROSE 5% WATER 50 ML IV SCH ×3 (06:09→21:33)
[2019-05-31] MEDS: MIDODRINE HCL 5MG TABLET PO SCH ×3 (06:38→22:00)
[2019-05-31] MEDS: BLOOD SUGAR DIAGNOSTIC STRIP TEST SCH ×4 (07:59→21:26)
[2019-05-31] MEDS: INSULIN LISPRO 100 UNITS/ML SUBCUT SCH ×4 (08:00→21:00)
[2019-05-31] MEDS: THIAMINE HCL 100MG TABLET PO SCH (08:00)
[2019-05-31] MEDS: ASPIRIN 81MG EC TABLET PO SCH (08:00)
[2019-05-31] MEDS: FOLIC ACID/VITAMIN B COMP W-C TABLET PO SCH (08:00)
[2019-05-31] MEDS: ENOXAPARIN 30MG/0.3ML SYR SUBCUT SCH (08:00)
[2019-05-31] MEDS: CARVEDILOL 3.125 MG TABLET PO SCH ×2 (08:34→20:06)
[2019-05-31 10:01] LABS: BASOPHILS % 0.3 % (0.0-2.0); EOSINOPHILS % 0.4 % (0.0-5.0); HEMATOCRIT. 24.7 % (42.0-52.0); HEMOGLOBIN. 8.3 g/dL (14.0-18.0); LYMPHOCYTES % 22.2 % (20.0-50.0); MEAN CORPUSCULAR HEMOGLOBIN 33.7 pg (28.0-32.0); MEAN CORPUSCULAR VOLUME 99.9 fL (80.0-94.0); MEAN PLATELET VOLUME 9.7 fl (7.4-10.4); MONOCYTES % 6.9 % (2.0-8.0); NEUTROPHILS % 70.2 % (40.0-76.0); PLATELET 104 x1000/uL (130-400); RED BLOOD CELL COUNT 2.48 mill/uL (4.7-6.1)
[2019-05-31] MEDS: PHENYLEPHRINE 80 MG in DEXT 5% WATER 500 ML IV PRN (13:03)
[2019-05-31] MEDS ORDERED: POTASSIUM CHLORIDE 20MEQ TABLET SR PO NR (14:30)
[2019-05-31] MEDS: FLUDROCORTISONE ACETATE 0.1MG TABLET PO SCH (14:48)
[2019-05-31] MEDS: ONDANSETRON HCL 4MG/2ML INJ IV PRN (19:16)
[2019-06-01] VITALS (60 sets, daily range): BP systolic 64–158; BP diastolic 16–125
[2019-06-01] MEDS: ONDANSETRON HCL 4MG/2ML INJ IV PRN (02:34)
[2019-06-01] MEDS: SODIUM CHLORIDE 0.9% 1,000 ML IV SCH (02:35)
[2019-06-01] MEDS: PIPERACILLIN/TAZOBACTAM 2.25 G in DEXTROSE 5% WATER 50 ML IV SCH ×3 (05:17→22:56)
[2019-06-01] MEDS: MIDODRINE HCL 5MG TABLET PO SCH ×3 (05:18→22:22)
[2019-06-01 06:54] LABS: HEMOGLOBIN 9.6 g/dL (14.0-18.0); MEAN CORPUSCULAR HEMOGLOBIN 33.4 pg (28.0-32.0); MEAN CORPUSCULAR VOLUME 100.8 fL (80.0-94.0); PLATELET 105 x1000/uL (130-400); RED BLOOD CELL COUNT 2.88 mill/uL (4.7-6.1)
[2019-06-01 07:01] LABS: CHLORIDE 109 mEq/L (98-107)
[2019-06-01] MEDS: BLOOD SUGAR DIAGNOSTIC STRIP TEST SCH ×4 (07:45→21:17)
[2019-06-01] MEDS: INSULIN LISPRO 100 UNITS/ML SUBCUT SCH ×4 (08:14→21:22)
[2019-06-01] MEDS: FLUDROCORTISONE ACETATE 0.1MG TABLET PO SCH (08:15)
[2019-06-01] MEDS: THIAMINE HCL 100MG TABLET PO SCH (08:15)
[2019-06-01] MEDS: ENOXAPARIN 30MG/0.3ML SYR SUBCUT SCH (08:15)
[2019-06-01] MEDS: ASPIRIN 81MG EC TABLET PO SCH (08:15)
[2019-06-01] MEDS: FOLIC ACID/VITAMIN B COMP W-C TABLET PO SCH (08:15)
[2019-06-01] MEDS: CARVEDILOL 3.125 MG TABLET PO SCH ×2 (08:32→21:21)
[2019-06-01] MEDS ORDERED: PHENYLEPHRINE 80 MG in DEXT 5% WATER 492 ML IV PRN (17:32)
[2019-06-02] VITALS (26 sets, daily range): BP systolic 70–144; BP diastolic 31–90
[2019-06-02] MEDS: MIDODRINE HCL 5MG TABLET PO SCH ×3 (06:27→21:31)
[2019-06-02] MEDS: BLOOD SUGAR DIAGNOSTIC STRIP TEST SCH ×4 (07:30→21:29)
[2019-06-02] MEDS: INSULIN LISPRO 100 UNITS/ML SUBCUT SCH ×4 (07:31→21:31)
[2019-06-02] MEDS: ASPIRIN 81MG EC TABLET PO SCH (08:07)
[2019-06-02] MEDS: FLUDROCORTISONE ACETATE 0.1MG TABLET PO SCH (08:07)
[2019-06-02] MEDS: THIAMINE HCL 100MG TABLET PO SCH (08:07)
[2019-06-02] MEDS: CARVEDILOL 3.125 MG TABLET PO SCH ×2 (08:08→21:37)
[2019-06-02] MEDS: FOLIC ACID/VITAMIN B COMP W-C TABLET PO SCH (08:10)
[2019-06-02 09:54] LABS: BASOPHILS % 0.5 % (0.0-2.0); EOSINOPHILS % 1.3 % (0.0-5.0); HEMATOCRIT. 30.6 % (42.0-52.0); HEMOGLOBIN. 9.9 g/dL (14.0-18.0); LYMPHOCYTES % 30.1 % (20.0-50.0); MEAN CORPUSCULAR HEMOGLOBIN 33.1 pg (28.0-32.0); MEAN CORPUSCULAR VOLUME 102.4 fL (80.0-94.0); MEAN PLATELET VOLUME 9.5 fl (7.4-10.4); MONOCYTES % 5.7 % (2.0-8.0); NEUTROPHILS % 62.4 % (40.0-76.0); PLATELET 102 x1000/uL (130-400); RED BLOOD CELL COUNT 2.99 mill/uL (4.7-6.1); RED CELL DISTRIBUTION WIDTH 18.6 % (11.6-14.6)
[2019-06-02] MEDS ORDERED: POTASSIUM CHLORIDE 20MEQ/PACKET PO NR (10:30)
[2019-06-02] MEDS: ENOXAPARIN 30MG/0.3ML SYR SUBCUT SCH (11:06)
[2019-06-02] MEDS ORDERED: HYDROCODONE/ACETAMINOPHEN 5/325MG TABLET PO PRN (11:30)
[2019-06-03] VITALS (42 sets, daily range): BP systolic 70–150; BP diastolic 24–108
[2019-06-03] MEDS: MORPHINE SULFATE 2 MG/ML CPJ (NOT FOR IM USE) IV PRN (02:51)
[2019-06-03] MEDS: MIDODRINE HCL 5MG TABLET PO SCH ×3 (06:01→21:22)
[2019-06-03 07:10] LABS: TOTAL IRON BINDING CAPACITY 181 ug/dL (250-450)
[2019-06-03] MEDS: BLOOD SUGAR DIAGNOSTIC STRIP TEST SCH ×4 (08:07→20:49)
[2019-06-03] MEDS: INSULIN LISPRO 100 UNITS/ML SUBCUT SCH ×4 (08:07→20:44)
[2019-06-03] MEDS: CARVEDILOL 3.125 MG TABLET PO SCH ×2 (08:39→21:22)
[2019-06-03] MEDS: ENOXAPARIN 30MG/0.3ML SYR SUBCUT SCH (08:39)
[2019-06-03] MEDS: FLUDROCORTISONE ACETATE 0.1MG TABLET PO SCH (08:40)
[2019-06-03] MEDS: ASPIRIN 81MG EC TABLET PO SCH (08:40)
[2019-06-03] MEDS: FOLIC ACID/VITAMIN B COMP W-C TABLET PO SCH (08:40)
[2019-06-03] MEDS: THIAMINE HCL 100MG TABLET PO SCH (08:40)
[2019-06-04] VITALS (51 sets, daily range): BP systolic 67–140; BP diastolic 18–110
[2019-06-04] MEDS: MIDODRINE HCL 5MG TABLET PO SCH ×3 (05:25→21:14)
[2019-06-04 06:04] LABS: BASOPHILS % 0.5 % (0.0-2.0); EOSINOPHILS % 0.9 % (0.0-5.0); HEMATOCRIT. 29.9 % (42.0-52.0); HEMOGLOBIN. 9.9 g/dL (14.0-18.0); LYMPHOCYTES % 36.8 % (20.0-50.0); MEAN CORPUSCULAR HEMOGLOBIN 33.8 pg (28.0-32.0); MEAN CORPUSCULAR VOLUME 102.4 fL (80.0-94.0); MEAN PLATELET VOLUME 9.3 fl (7.4-10.4); MONOCYTES % 7.1 % (2.0-8.0); NEUTROPHILS % 54.7 % (40.0-76.0); PLATELET 111 x1000/uL (130-400); RED BLOOD CELL COUNT 2.92 mill/uL (4.7-6.1); RED CELL DISTRIBUTION WIDTH 20.8 % (11.6-14.6)
[2019-06-04] MEDS: BLOOD SUGAR DIAGNOSTIC STRIP TEST SCH ×4 (07:50→21:12)
[2019-06-04] MEDS: INSULIN LISPRO 100 UNITS/ML SUBCUT SCH ×4 (08:20→21:12)
[2019-06-04] MEDS: THIAMINE HCL 100MG TABLET PO SCH (09:06)
[2019-06-04] MEDS: CARVEDILOL 3.125 MG TABLET PO SCH ×2 (09:06→21:11)
[2019-06-04] MEDS: FLUDROCORTISONE ACETATE 0.1MG TABLET PO SCH (09:07)
[2019-06-04] MEDS: FOLIC ACID/VITAMIN B COMP W-C TABLET PO SCH (09:07)
[2019-06-04] MEDS: ENOXAPARIN 30MG/0.3ML SYR SUBCUT SCH (09:07)
[2019-06-04] MEDS: ASPIRIN 81MG EC TABLET PO SCH (09:07)
[2019-06-05] VITALS (30 sets, daily range): BP systolic 94–142; BP diastolic 17–76
[2019-06-05] MEDS: MORPHINE SULFATE 2 MG/ML CPJ (NOT FOR IM USE) IV PRN (02:09)
[2019-06-05] MEDS: MIDODRINE HCL 5MG TABLET PO SCH ×3 (05:29→21:21)
[2019-06-05 06:01] LABS: BASOPHILS % 1.3 % (0.0-2.0); EOSINOPHILS % 0.5 % (0.0-5.0); HEMATOCRIT. 29.5 % (42.0-52.0); HEMOGLOBIN. 9.7 g/dL (14.0-18.0); LYMPHOCYTES % 39.2 % (20.0-50.0); MEAN CORPUSCULAR HEMOGLOBIN 34.1 pg (28.0-32.0); MEAN CORPUSCULAR VOLUME 104.2 fL (80.0-94.0); MONOCYTES % 6.1 % (2.0-8.0); NEUTROPHILS % 52.9 % (40.0-76.0); PLATELET 97 x1000/uL (130-400); RED BLOOD CELL COUNT 2.83 mill/uL (4.7-6.1); RED CELL DISTRIBUTION WIDTH 22.7 % (11.6-14.6)
[2019-06-05 06:15] LABS: PHOSPHORUS 4.8 mg/dL (2.5-4.9)
[2019-06-05] MEDS: BLOOD SUGAR DIAGNOSTIC STRIP TEST SCH ×4 (07:50→21:13)
[2019-06-05] MEDS: INSULIN LISPRO 100 UNITS/ML SUBCUT SCH ×4 (08:20→21:23)
[2019-06-05] MEDS: ASPIRIN 81MG EC TABLET PO SCH (08:49)
[2019-06-05] MEDS: CARVEDILOL 3.125 MG TABLET PO SCH ×2 (08:49→21:00)
[2019-06-05] MEDS: THIAMINE HCL 100MG TABLET PO SCH (08:49)
[2019-06-05] MEDS: FLUDROCORTISONE ACETATE 0.1MG TABLET PO SCH (08:49)
[2019-06-05] MEDS: FOLIC ACID/VITAMIN B COMP W-C TABLET PO SCH (08:49)
[2019-06-05] MEDS: ENOXAPARIN 30MG/0.3ML SYR SUBCUT SCH (08:50)
[2019-06-05] MEDS: EPOETIN ALFA 4000UNITS/ML VIAL SUBCUT SCH (21:21)
[2019-06-06] VITALS (7 sets, daily range): BP systolic 96–148; BP diastolic 35–73
[2019-06-06 06:53] LABS: BASOPHILS % 0.4 % (0.0-2.0); EOSINOPHILS % 0.3 % (0.0-5.0); HEMATOCRIT. 29.9 % (42.0-52.0); HEMOGLOBIN. 10.1 g/dL (14.0-18.0); LYMPHOCYTES % 49.9 % (20.0-50.0); MEAN CORPUSCULAR HEMOGLOBIN 34.4 pg (28.0-32.0); MEAN CORPUSCULAR VOLUME 101.9 fL (80.0-94.0); MEAN PLATELET VOLUME 9.2 fl (7.4-10.4); MONOCYTES % 7.8 % (2.0-8.0); NEUTROPHILS % 41.6 % (40.0-76.0); PLATELET 124 x1000/uL (130-400); RED BLOOD CELL COUNT 2.93 mill/uL (4.7-6.1); RED CELL DISTRIBUTION WIDTH 21.3 % (11.6-14.6)
[2019-06-06] MEDS: BLOOD SUGAR DIAGNOSTIC STRIP TEST SCH ×4 (08:34→21:21)
[2019-06-06] MEDS: CARVEDILOL 3.125 MG TABLET PO SCH ×2 (08:48→21:00)
[2019-06-06] MEDS: FOLIC ACID/VITAMIN B COMP W-C TABLET PO SCH (08:48)
[2019-06-06] MEDS: ENOXAPARIN 30MG/0.3ML SYR SUBCUT SCH (08:48)
[2019-06-06] MEDS: THIAMINE HCL 100MG TABLET PO SCH (08:49)
[2019-06-06] MEDS: ASPIRIN 81MG EC TABLET PO SCH (08:49)
[2019-06-06] MEDS: FLUDROCORTISONE ACETATE 0.1MG TABLET PO SCH (08:49)
[2019-06-06] MEDS: MIDODRINE HCL 5MG TABLET PO SCH ×3 (08:57→21:27)
[2019-06-06] MEDS: INSULIN LISPRO 100 UNITS/ML SUBCUT SCH ×4 (08:58→21:00)
[2019-06-07] VITALS: BP 140/42
[2019-06-07 04:00] VITALS: BP 117/40
[2019-06-07] MEDS: MIDODRINE HCL 5MG TABLET PO SCH ×3 (06:07→20:35)
[2019-06-07 07:13] LABS: BASOPHILS % 0.7 % (0.0-2.0); EOSINOPHILS % 0.6 % (0.0-5.0); HEMATOCRIT. 31.4 % (42.0-52.0); HEMOGLOBIN. 10.4 g/dL (14.0-18.0); LYMPHOCYTES % 52.5 % (20.0-50.0); MEAN CORPUSCULAR HEMOGLOBIN 34.2 pg (28.0-32.0); MEAN CORPUSCULAR VOLUME 103.5 fL (80.0-94.0); MONOCYTES % 8.3 % (2.0-8.0); NEUTROPHILS % 37.9 % (40.0-76.0); PLATELET 132 x1000/uL (130-400); RED BLOOD CELL COUNT 3.04 mill/uL (4.7-6.1); RED CELL DISTRIBUTION WIDTH 22.9 % (11.6-14.6)
[2019-06-07] MEDS: INSULIN LISPRO 100 UNITS/ML SUBCUT SCH ×4 (07:26→21:00)
[2019-06-07] MEDS: BLOOD SUGAR DIAGNOSTIC STRIP TEST SCH ×4 (07:26→20:12)
[2019-06-07 08:00] VITALS: BP 115/52
[2019-06-07] MEDS: ENOXAPARIN 30MG/0.3ML SYR SUBCUT SCH (08:56)
[2019-06-07] MEDS: ASPIRIN 81MG EC TABLET PO SCH (08:56)
[2019-06-07] MEDS: CARVEDILOL 3.125 MG TABLET PO SCH ×2 (08:58→20:34)
[2019-06-07] MEDS: FOLIC ACID/VITAMIN B COMP W-C TABLET PO SCH (08:59)
[2019-06-07] MEDS: THIAMINE HCL 100MG TABLET PO SCH (08:59)
[2019-06-07] MEDS: FLUDROCORTISONE ACETATE 0.1MG TABLET PO SCH (08:59)
[2019-06-07 12:00] VITALS: BP 114/44
[2019-06-07 12:18] LABS: PLATELET ESTIMATE NORMAL
[2019-06-07 16:00] VITALS: BP 110/31
[2019-06-07 20:00] VITALS: BP 122/48
[2019-06-08] VITALS: BP 103/41
[2019-06-08 04:00] VITALS: BP 119/42
[2019-06-08] MEDS: BLOOD SUGAR DIAGNOSTIC STRIP TEST SCH ×4 (05:22→21:11)
[2019-06-08] MEDS: MIDODRINE HCL 5MG TABLET PO SCH ×3 (06:22→22:00)
[2019-06-08 07:14] LABS: BASOPHILS % 0.6 % (0.0-2.0); EOSINOPHILS % 0.5 % (0.0-5.0); HEMOGLOBIN. 11.2 g/dL (14.0-18.0); LYMPHOCYTES % 52.8 % (20.0-50.0); MEAN CORPUSCULAR HEMOGLOBIN 34.8 pg (28.0-32.0); MEAN CORPUSCULAR VOLUME 102.4 fL (80.0-94.0); MEAN PLATELET VOLUME 9.1 fl (7.4-10.4); MONOCYTES % 8.4 % (2.0-8.0); NEUTROPHILS % 37.7 % (40.0-76.0); PLATELET 138 x1000/uL (130-400); RED BLOOD CELL COUNT 3.22 mill/uL (4.7-6.1)
[2019-06-08 08:00] VITALS: BP 130/46
[2019-06-08] MEDS: INSULIN LISPRO 100 UNITS/ML SUBCUT SCH ×4 (08:10→21:11)
[2019-06-08] MEDS: CARVEDILOL 3.125 MG TABLET PO SCH ×2 (09:41→21:00)
[2019-06-08] MEDS: FOLIC ACID/VITAMIN B COMP W-C TABLET PO SCH (09:41)
[2019-06-08] MEDS: THIAMINE HCL 100MG TABLET PO SCH (09:41)
[2019-06-08] MEDS: ASPIRIN 81MG EC TABLET PO SCH (09:41)
[2019-06-08] MEDS: FLUDROCORTISONE ACETATE 0.1MG TABLET PO SCH (09:41)
[2019-06-08 12:00] VITALS: BP 109/50
[2019-06-08 13:19] LABS: BASOPHILS % 0.7 % (0.0-2.0); EOSINOPHILS % 0.8 % (0.0-5.0); HEMOGLOBIN. 10.3 g/dL (14.0-18.0); LYMPHOCYTES % 49.2 % (20.0-50.0); MEAN CORPUSCULAR HEMOGLOBIN 34.3 pg (28.0-32.0); MEAN CORPUSCULAR VOLUME 103.5 fL (80.0-94.0); MEAN PLATELET VOLUME 8.8 fl (7.4-10.4); MONOCYTES % 8.7 % (2.0-8.0); NEUTROPHILS % 40.6 % (40.0-76.0); PLATELET 134 x1000/uL (130-400); RED BLOOD CELL COUNT 2.99 mill/uL (4.7-6.1); RED CELL DISTRIBUTION WIDTH 22.9 % (11.6-14.6)
[2019-06-08 16:00] VITALS: BP 108/56
[2019-06-08 20:00] VITALS: BP 109/31
[2019-06-09] VITALS: BP 132/36
[2019-06-09 04:00] VITALS: BP 117/38
[2019-06-09] MEDS: MIDODRINE HCL 5MG TABLET PO SCH ×3 (06:07→21:44)
[2019-06-09] MEDS: BLOOD SUGAR DIAGNOSTIC STRIP TEST SCH ×4 (07:40→21:40)
[2019-06-09 08:00] VITALS: BP 116/56
[2019-06-09] MEDS: FLUDROCORTISONE ACETATE 0.1MG TABLET PO SCH (10:09)
[2019-06-09] MEDS: ENOXAPARIN 30MG/0.3ML SYR SUBCUT SCH (10:09)
[2019-06-09] MEDS: FOLIC ACID/VITAMIN B COMP W-C TABLET PO SCH (10:09)
[2019-06-09] MEDS: ASPIRIN 81MG EC TABLET PO SCH (10:09)
[2019-06-09] MEDS: THIAMINE HCL 100MG TABLET PO SCH (10:09)
[2019-06-09] MEDS: INSULIN LISPRO 100 UNITS/ML SUBCUT SCH ×4 (10:11→21:45)
[2019-06-09] MEDS: CARVEDILOL 3.125 MG TABLET PO SCH ×2 (10:12→21:44)
[2019-06-09 20:00] VITALS: BP 117/38
[2019-06-09] MEDS ORDERED: LORAZEPAM 2MG/ML CPJ IV PRN (21:15)
[2019-06-10] VITALS: BP 123/40
[2019-06-10 04:00] VITALS: BP 124/36
[2019-06-10] MEDS: MIDODRINE HCL 5MG TABLET PO SCH ×3 (05:16→21:35)
[2019-06-10 07:32] LABS: BASOPHILS % 0.6 % (0.0-2.0); EOSINOPHILS % 0.9 % (0.0-5.0); HEMATOCRIT. 30.5 % (42.0-52.0); HEMOGLOBIN. 10.3 g/dL (14.0-18.0); LYMPHOCYTES % 57.6 % (20.0-50.0); MEAN CORPUSCULAR HEMOGLOBIN 34.3 pg (28.0-32.0); MEAN CORPUSCULAR VOLUME 101.6 fL (80.0-94.0); MEAN PLATELET VOLUME 9.2 fl (7.4-10.4); MONOCYTES % 3.9 % (2.0-8.0); PLATELET 144 x1000/uL (130-400); RED BLOOD CELL COUNT 3.01 mill/uL (4.7-6.1); RED CELL DISTRIBUTION WIDTH 21.5 % (11.6-14.6)
[2019-06-10 07:40] LABS: CHLORIDE 103 mEq/L (98-107)
[2019-06-10 07:45] LABS: VITAMIN B12 SERUM 968 pg/mL (211-911)
[2019-06-10] MEDS: BLOOD SUGAR DIAGNOSTIC STRIP TEST SCH ×4 (07:52→21:29)
[2019-06-10 07:58] LABS: FOLIC ACID (FOLATE) SERUM >20 ng/mL ng/mL (>5.38)
[2019-06-10 08:00] VITALS: BP 137/24
[2019-06-10] MEDS: INSULIN LISPRO 100 UNITS/ML SUBCUT SCH ×4 (09:37→21:00)
[2019-06-10] MEDS: FOLIC ACID/VITAMIN B COMP W-C TABLET PO SCH (09:40)
[2019-06-10] MEDS: ASPIRIN 81MG EC TABLET PO SCH (09:40)
[2019-06-10] MEDS: FLUDROCORTISONE ACETATE 0.1MG TABLET PO SCH (09:40)
[2019-06-10] MEDS: ENOXAPARIN 30MG/0.3ML SYR SUBCUT SCH (09:41)
[2019-06-10] MEDS: THIAMINE HCL 100MG TABLET PO SCH (09:41)
[2019-06-10] MEDS: CARVEDILOL 3.125 MG TABLET PO SCH ×2 (09:53→21:00)
[2019-06-10 11:50] VITALS: BP 125/102
[2019-06-10 16:00] VITALS: BP 96/30
[2019-06-10 20:00] VITALS: BP 92/31
[2019-06-11] VITALS: BP 90/32
[2019-06-11] MEDS: BLOOD SUGAR DIAGNOSTIC STRIP TEST SCH ×4 (07:40→21:00)
[2019-06-11 08:00] VITALS: BP 100/40
[2019-06-11] MEDS: INSULIN LISPRO 100 UNITS/ML SUBCUT SCH ×4 (08:10→22:36)
[2019-06-11] MEDS: CARVEDILOL 3.125 MG TABLET PO SCH ×2 (09:00→21:00)
[2019-06-11] MEDS: THIAMINE HCL 100MG TABLET PO SCH (10:45)
[2019-06-11] MEDS: FOLIC ACID/VITAMIN B COMP W-C TABLET PO SCH (10:45)
[2019-06-11] MEDS: FLUDROCORTISONE ACETATE 0.1MG TABLET PO SCH (10:45)
[2019-06-11] MEDS: ASPIRIN 81MG EC TABLET PO SCH (10:45)
[2019-06-11] MEDS: ENOXAPARIN 30MG/0.3ML SYR SUBCUT SCH (10:45)
[2019-06-11 12:00] VITALS: BP 121/38
[2019-06-11 16:00] VITALS: BP 116/45
[2019-06-11] MEDS: MIDODRINE HCL 5MG TABLET PO SCH ×3 (18:23→22:35)
[2019-06-11 20:00] VITALS: BP 129/22
[2019-06-12] VITALS: BP 124/28
[2019-06-12] MEDS: LORAZEPAM 2MG/ML CPJ IV PRN ×2 (01:21→20:15)
[2019-06-12 04:00] VITALS: BP 105/49
[2019-06-12 07:22] LABS: BASOPHILS % 0.5 % (0.0-2.0); EOSINOPHILS % 0.6 % (0.0-5.0); HEMOGLOBIN. 10.3 g/dL (14.0-18.0); LYMPHOCYTES % 60.5 % (20.0-50.0); MEAN CORPUSCULAR HEMOGLOBIN 34.2 pg (28.0-32.0); MEAN CORPUSCULAR VOLUME 102.6 fL (80.0-94.0); MEAN PLATELET VOLUME 9.4 fl (7.4-10.4); MONOCYTES % 7.5 % (2.0-8.0); NEUTROPHILS % 30.9 % (40.0-76.0); PLATELET 151 x1000/uL (130-400); RED BLOOD CELL COUNT 3.02 mill/uL (4.7-6.1)
[2019-06-12] MEDS: BLOOD SUGAR DIAGNOSTIC STRIP TEST SCH ×4 (07:40→21:00)
[2019-06-12 08:00] VITALS: BP 119/48
[2019-06-12] MEDS: MIDODRINE HCL 5MG TABLET PO SCH ×3 (08:00→22:59)
[2019-06-12] MEDS: CARVEDILOL 3.125 MG TABLET PO SCH ×2 (09:00→21:00)
[2019-06-12] MEDS: INSULIN LISPRO 100 UNITS/ML SUBCUT SCH ×4 (09:03→21:00)
[2019-06-12] MEDS: ENOXAPARIN 30MG/0.3ML SYR SUBCUT SCH (10:20)
[2019-06-12] MEDS: ASPIRIN 81MG EC TABLET PO SCH (10:20)
[2019-06-12] MEDS: THIAMINE HCL 100MG TABLET PO SCH (10:20)
[2019-06-12] MEDS: FOLIC ACID/VITAMIN B COMP W-C TABLET PO SCH (10:21)
[2019-06-12] MEDS: FLUDROCORTISONE ACETATE 0.1MG TABLET PO SCH (10:21)
[2019-06-12 12:00] VITALS: BP 132/111
[2019-06-12 16:00] VITALS: BP 128/25
[2019-06-12 20:00] VITALS: BP 91/32
[2019-06-12] MEDS: EPOETIN ALFA 4000UNITS/ML VIAL SUBCUT SCH (21:00)
[2019-06-13] VITALS: BP 105/38
[2019-06-13] MEDS: LORAZEPAM 2MG/ML CPJ IV PRN (01:16)
[2019-06-13 04:00] VITALS: BP 96/38
[2019-06-13] MEDS: BLOOD SUGAR DIAGNOSTIC STRIP TEST SCH ×4 (07:38→21:39)
[2019-06-13] MEDS: INSULIN LISPRO 100 UNITS/ML SUBCUT SCH ×4 (07:38→21:53)
[2019-06-13 08:00] VITALS: BP_SYST 102; BP_SYST 128; BP_DIAS 25; BP_DIAS 40
[2019-06-13] MEDS: CARVEDILOL 3.125 MG TABLET PO SCH ×2 (08:54→21:00)
[2019-06-13] MEDS: LISINOPRIL 2.5MG TABLET PO SCH (08:54)
[2019-06-13] MEDS: ASPIRIN 81MG EC TABLET PO SCH (08:55)
[2019-06-13] MEDS: FOLIC ACID/VITAMIN B COMP W-C TABLET PO SCH (08:55)
[2019-06-13] MEDS: THIAMINE HCL 100MG TABLET PO SCH (08:55)
[2019-06-13] MEDS: ENOXAPARIN 30MG/0.3ML SYR SUBCUT SCH (08:55)
[2019-06-13] MEDS: MIDODRINE HCL 5MG TABLET PO SCH ×3 (08:55→22:00)
[2019-06-13] MEDS: FLUDROCORTISONE ACETATE 0.1MG TABLET PO SCH (08:55)
[2019-06-13 12:00] VITALS: BP 118/34
[2019-06-13 16:00] VITALS: BP 111/41
[2019-06-13] MEDS: MULTIVITAMINS,THER W-MINERALS TABLET PO SCH (16:45)
[2019-06-13] MEDS: FOLIC ACID 1MG TABLET PO SCH (17:53)
[2019-06-13 19:58] LABS: T4 FREE 1.08 ng/dL (0.76-1.46)
[2019-06-13 20:17] LABS: VITAMIN B12 SERUM 1143 pg/mL (211-911)
[2019-06-13 20:18] LABS: FOLIC ACID (FOLATE) SERUM > 20.00 ng/mL (>5.38)
[2019-06-13 20:23] LABS: HEPATITIS B SURFACE ANTIGEN NEGATIVE
[2019-06-13 20:53] LABS: HEPATITIS A AB IGM NEGATIVE (NEGATIVE)
[2019-06-14 00:15] VITALS: BP 107/73
[2019-06-14 04:00] VITALS: BP 116/38
[2019-06-14] MEDS: MIDODRINE HCL 5MG TABLET PO SCH ×4 (05:10→21:28)
[2019-06-14] MEDS: BLOOD SUGAR DIAGNOSTIC STRIP TEST SCH ×4 (06:41→20:56)
[2019-06-14] MEDS: INSULIN LISPRO 100 UNITS/ML SUBCUT SCH ×4 (06:51→21:27)
[2019-06-14 07:25] LABS: BASOPHILS % 0.8 % (0.0-2.0); EOSINOPHILS % 0.2 % (0.0-5.0); HEMATOCRIT. 30.4 % (42.0-52.0); HEMOGLOBIN. 10.2 g/dL (14.0-18.0); MEAN CORPUSCULAR HEMOGLOBIN 34.6 pg (28.0-32.0); MEAN CORPUSCULAR VOLUME 102.7 fL (80.0-94.0); MEAN PLATELET VOLUME 9.1 fl (7.4-10.4); MONOCYTES % 6.5 % (2.0-8.0); NEUTROPHILS % 37.5 % (40.0-76.0); PLATELET 196 x1000/uL (130-400); RED BLOOD CELL COUNT 2.96 mill/uL (4.7-6.1); RED CELL DISTRIBUTION WIDTH 21.6 % (11.6-14.6)
[2019-06-14 08:00] VITALS: BP 105/32
[2019-06-14] MEDS: CARVEDILOL 3.125 MG TABLET PO SCH ×2 (08:24→20:55)
[2019-06-14] MEDS: MULTIVITAMINS,THER W-MINERALS TABLET PO SCH (08:25)
[2019-06-14] MEDS: LISINOPRIL 2.5MG TABLET PO SCH (08:25)
[2019-06-14] MEDS: FLUDROCORTISONE ACETATE 0.1MG TABLET PO SCH (08:25)
[2019-06-14] MEDS: ASPIRIN 81MG EC TABLET PO SCH (08:25)
[2019-06-14] MEDS: THIAMINE HCL 100MG TABLET PO SCH (08:25)
[2019-06-14] MEDS: FOLIC ACID 1MG TABLET PO SCH (08:25)
[2019-06-14] MEDS: FOLIC ACID/VITAMIN B COMP W-C TABLET PO SCH (08:25)
[2019-06-14] MEDS: ENOXAPARIN 30MG/0.3ML SYR SUBCUT SCH (08:26)
[2019-06-14] MEDS ORDERED: ACETAMINOPHEN 325MG TABLET PO PRN (10:30)
[2019-06-14 12:00] VITALS: BP 96/25
[2019-06-14] MEDS: CEFTRIAXONE 1 G PREMIX 50 ML IV SCH (15:00)
[2019-06-14 16:00] VITALS: BP 117/76
[2019-06-14] MEDS: IPRATROPIUM/ALBUTEROL 0.5-3(2.5)MG/3ML NEB HHN PRN (18:51)
[2019-06-14 20:00] VITALS: BP 108/37
[2019-06-14] MEDS: AZITHROMYCIN 500 MG in DEXT 5% WATER 250 ML IV SCH (21:27)
[2019-06-14] MEDS: BENZONATATE 100MG CAPSULE PO PRN (22:18)
[2019-06-14] MEDS: LORAZEPAM 2MG/ML CPJ IV PRN (22:24)
[2019-06-15] VITALS: BP 143/52
[2019-06-15 04:00] VITALS: BP 141/57
[2019-06-15] MEDS: MIDODRINE HCL 5MG TABLET PO SCH ×3 (05:20→21:25)
[2019-06-15 07:13] LABS: BASOPHILS % 0.7 % (0.0-2.0); EOSINOPHILS % 0.2 % (0.0-5.0); HEMATOCRIT. 29.9 % (42.0-52.0); HEMOGLOBIN. 9.9 g/dL (14.0-18.0); LYMPHOCYTES % 62.6 % (20.0-50.0); MEAN CORPUSCULAR HEMOGLOBIN 34.3 pg (28.0-32.0); MEAN CORPUSCULAR VOLUME 103.5 fL (80.0-94.0); MEAN PLATELET VOLUME 9.1 fl (7.4-10.4); MONOCYTES % 6.7 % (2.0-8.0); NEUTROPHILS % 29.8 % (40.0-76.0); PLATELET 180 x1000/uL (130-400); RED BLOOD CELL COUNT 2.89 mill/uL (4.7-6.1); RED CELL DISTRIBUTION WIDTH 22.1 % (11.6-14.6)
[2019-06-15 08:00] VITALS: BP 90/38
[2019-06-15] MEDS: INSULIN LISPRO 100 UNITS/ML SUBCUT SCH ×4 (08:10→21:26)
[2019-06-15] MEDS: BLOOD SUGAR DIAGNOSTIC STRIP TEST SCH ×4 (08:11→21:25)
[2019-06-15] MEDS: CARVEDILOL 3.125 MG TABLET PO SCH ×2 (09:00→21:00)
[2019-06-15] MEDS: LISINOPRIL 2.5MG TABLET PO SCH (09:00)
[2019-06-15] MEDS: FOLIC ACID 1MG TABLET PO SCH (09:44)
[2019-06-15] MEDS: FOLIC ACID/VITAMIN B COMP W-C TABLET PO SCH (09:44)
[2019-06-15] MEDS: BENZONATATE 100MG CAPSULE PO PRN (09:44)
[2019-06-15] MEDS: ASPIRIN 81MG EC TABLET PO SCH (09:44)
[2019-06-15] MEDS: MULTIVITAMINS,THER W-MINERALS TABLET PO SCH (09:44)
[2019-06-15] MEDS: FLUDROCORTISONE ACETATE 0.1MG TABLET PO SCH (09:46)
[2019-06-15] MEDS: ENOXAPARIN 30MG/0.3ML SYR SUBCUT SCH (09:51)
[2019-06-15] MEDS: THIAMINE HCL 100MG TABLET PO SCH (10:17)
[2019-06-15] MEDS: CEFTRIAXONE 1 G PREMIX 50 ML IV SCH (17:58)
[2019-06-15 20:00] VITALS: BP 86/41
[2019-06-15] MEDS: AZITHROMYCIN 500 MG in DEXT 5% WATER 250 ML IV SCH (21:24)
[2019-06-16] VITALS: BP 87/35
[2019-06-16 04:00] VITALS: BP 98/33
[2019-06-16] MEDS: BLOOD SUGAR DIAGNOSTIC STRIP TEST SCH ×2 (05:48→12:40)
[2019-06-16] MEDS: MIDODRINE HCL 5MG TABLET PO SCH ×2 (05:48→14:16)
[2019-06-16 08:00] VITALS: BP 90/40
[2019-06-16 08:05] LABS: BASOPHILS % 0.2 % (0.0-2.0); EOSINOPHILS % 0.2 % (0.0-5.0); HEMOGLOBIN. 10.4 g/dL (14.0-18.0); LYMPHOCYTES % 58.8 % (20.0-50.0); MEAN CORPUSCULAR HEMOGLOBIN 34.7 pg (28.0-32.0); MEAN CORPUSCULAR VOLUME 103.8 fL (80.0-94.0); MEAN PLATELET VOLUME 8.9 fl (7.4-10.4); MONOCYTES % 6.6 % (2.0-8.0); NEUTROPHILS % 34.2 % (40.0-76.0); PLATELET 191 x1000/uL (130-400); RED BLOOD CELL COUNT 2.99 mill/uL (4.7-6.1); RED CELL DISTRIBUTION WIDTH 21.5 % (11.6-14.6)
[2019-06-16] MEDS: INSULIN LISPRO 100 UNITS/ML SUBCUT SCH ×2 (08:10→14:10)
[2019-06-16] MEDS: LISINOPRIL 2.5MG TABLET PO SCH (09:00)
[2019-06-16] MEDS: CARVEDILOL 3.125 MG TABLET PO SCH ×2 (09:00→21:00)
[2019-06-16] MEDS: FLUDROCORTISONE ACETATE 0.1MG TABLET PO SCH (09:43)
[2019-06-16] MEDS: ASPIRIN 81MG EC TABLET PO SCH (09:43)
[2019-06-16] MEDS: FOLIC ACID 1MG TABLET PO SCH (09:43)
[2019-06-16] MEDS: MULTIVITAMINS,THER W-MINERALS TABLET PO SCH (09:43)
[2019-06-16] MEDS: THIAMINE HCL 100MG TABLET PO SCH (09:43)
[2019-06-16] MEDS: FOLIC ACID/VITAMIN B COMP W-C TABLET PO SCH (09:43)
[2019-06-16] MEDS: ENOXAPARIN 30MG/0.3ML SYR SUBCUT SCH (09:44)
[2019-06-16 12:00] VITALS: BP 88/43
[2019-06-16 16:00] VITALS: BP 116/28
[2019-06-16] MEDS: CEFTRIAXONE 1 G PREMIX 50 ML IV SCH (17:28)
[2019-06-16 20:00] VITALS: BP 113/35
[2019-06-16] MEDS ORDERED: MIDODRINE HCL 5MG TABLET PO SCH (22:00)
[2019-06-16] MEDS: AZITHROMYCIN 500 MG in DEXT 5% WATER 250 ML IV SCH (22:01)
[2019-06-17 00:31] VITALS: BP 132/37
[2019-06-17 04:00] VITALS: BP 96/36
[2019-06-17 08:00] VITALS: BP 117/31
[2019-06-17 08:03] LABS: BASOPHILS % 0.4 % (0.0-2.0); EOSINOPHILS % 0.7 % (0.0-5.0); HEMATOCRIT. 31.3 % (42.0-52.0); HEMOGLOBIN. 10.6 g/dL (14.0-18.0); LYMPHOCYTES % 55.8 % (20.0-50.0); MEAN CORPUSCULAR HEMOGLOBIN 34.9 pg (28.0-32.0); MEAN CORPUSCULAR VOLUME 103.3 fL (80.0-94.0); MEAN PLATELET VOLUME 8.6 fl (7.4-10.4); MONOCYTES % 7.6 % (2.0-8.0); NEUTROPHILS % 35.5 % (40.0-76.0); PLATELET 202 x1000/uL (130-400); RED BLOOD CELL COUNT 3.03 mill/uL (4.7-6.1); RED CELL DISTRIBUTION WIDTH 21.6 % (11.6-14.6)
[2019-06-17] MEDS: FOLIC ACID 1MG TABLET PO SCH (09:04)
[2019-06-17] MEDS: FLUDROCORTISONE ACETATE 0.1MG TABLET PO SCH (09:04)
[2019-06-17] MEDS: LISINOPRIL 2.5MG TABLET PO SCH (09:04)
[2019-06-17] MEDS: FOLIC ACID/VITAMIN B COMP W-C TABLET PO SCH (09:04)
[2019-06-17] MEDS: CARVEDILOL 3.125 MG TABLET PO SCH ×2 (09:04→21:00)
[2019-06-17] MEDS: MULTIVITAMINS,THER W-MINERALS TABLET PO SCH (09:04)
[2019-06-17] MEDS: ENOXAPARIN 30MG/0.3ML SYR SUBCUT SCH (09:05)
[2019-06-17 12:00] VITALS: BP 117/70
[2019-06-17] MEDS: CEFTRIAXONE 1 G PREMIX 50 ML IV SCH (15:59)
[2019-06-17 16:00] VITALS: BP 100/56
[2019-06-17 20:00] VITALS: BP 102/46
[2019-06-17] MEDS: AZITHROMYCIN 500 MG in DEXT 5% WATER 250 ML IV SCH (21:47)
[2019-06-18] VITALS: BP 142/39
[2019-06-18 04:00] VITALS: BP 113/38
[2019-06-18 06:34] LABS: BASOPHILS % 0.8 % (0.0-2.0); EOSINOPHILS % 0.7 % (0.0-5.0); HEMOGLOBIN. 10.4 g/dL (14.0-18.0); LYMPHOCYTES % 49.6 % (20.0-50.0); MEAN CORPUSCULAR HEMOGLOBIN 34.6 pg (28.0-32.0); MEAN CORPUSCULAR VOLUME 103.1 fL (80.0-94.0); MEAN PLATELET VOLUME 8.7 fl (7.4-10.4); MONOCYTES % 8.7 % (2.0-8.0); NEUTROPHILS % 40.2 % (40.0-76.0); PLATELET 197 x1000/uL (130-400); RED CELL DISTRIBUTION WIDTH 20.5 % (11.6-14.6)
[2019-06-18 08:00] VITALS: BP 103/67
[2019-06-18] MEDS: CARVEDILOL 3.125 MG TABLET PO SCH ×2 (09:00→20:59)
[2019-06-18] MEDS: LISINOPRIL 2.5MG TABLET PO SCH (09:00)
[2019-06-18] MEDS: FOLIC ACID 1MG TABLET PO SCH (09:26)
[2019-06-18] MEDS: MULTIVITAMINS,THER W-MINERALS TABLET PO SCH (09:26)
[2019-06-18] MEDS: FLUDROCORTISONE ACETATE 0.1MG TABLET PO SCH (09:26)
[2019-06-18] MEDS: FOLIC ACID/VITAMIN B COMP W-C TABLET PO SCH (09:26)
[2019-06-18] MEDS: ENOXAPARIN 30MG/0.3ML SYR SUBCUT SCH (09:26)
[2019-06-18] MEDS ORDERED: MIDODRINE HCL 5MG TABLET PO NR (10:30)
[2019-06-18 12:00] VITALS: BP 87/65
[2019-06-18] MEDS ORDERED: DIATR MEGLU/DIATRIZOATE SOLN 30ML PO NR (13:41)
[2019-06-18 16:00] VITALS: BP 107/66
[2019-06-18] MEDS: CEFTRIAXONE 1 G PREMIX 50 ML IV SCH (16:59)
[2019-06-18 20:00] VITALS: BP 119/61
[2019-06-18] MEDS: AZITHROMYCIN 500 MG in DEXT 5% WATER 250 ML IV SCH (20:59)
[2019-06-19] VITALS: BP 119/43
[2019-06-19 04:00] VITALS: BP 129/52
[2019-06-19] MEDS: LISINOPRIL 2.5MG TABLET PO SCH (08:17)
[2019-06-19] MEDS: FLUDROCORTISONE ACETATE 0.1MG TABLET PO SCH (08:38)
[2019-06-19] MEDS: FOLIC ACID 1MG TABLET PO SCH (08:38)
[2019-06-19] MEDS: MULTIVITAMINS,THER W-MINERALS TABLET PO SCH (08:38)
[2019-06-19] MEDS: ENOXAPARIN 30MG/0.3ML SYR SUBCUT SCH (08:39)
[2019-06-19] MEDS: CARVEDILOL 3.125 MG TABLET PO SCH ×2 (08:39→21:00)
[2019-06-19 12:00] VITALS: BP 90/49
[2019-06-19 16:00] VITALS: BP 148/43
[2019-06-19 20:00] VITALS: BP 102/45
[2019-06-19] MEDS: AZITHROMYCIN 500 MG in DEXT 5% WATER 250 ML IV SCH (21:10)
[2019-06-19] MEDS: CEFTRIAXONE 1 G PREMIX 50 ML IV SCH (23:41)
[2019-06-20] VITALS: BP 107/51
[2019-06-20 04:00] VITALS: BP 111/42
[2019-06-20 05:55] LABS: BASOPHILS % 0.3 % (0.0-2.0); EOSINOPHILS % 0.5 % (0.0-5.0); HEMATOCRIT. 31.7 % (42.0-52.0); HEMOGLOBIN. 10.7 g/dL (14.0-18.0); LYMPHOCYTES % 54.9 % (20.0-50.0); MEAN CORPUSCULAR HEMOGLOBIN 35.4 pg (28.0-32.0); MEAN CORPUSCULAR VOLUME 104.5 fL (80.0-94.0); MEAN PLATELET VOLUME 8.9 fl (7.4-10.4); MONOCYTES % 7.3 % (2.0-8.0); PLATELET 218 x1000/uL (130-400); RED BLOOD CELL COUNT 3.04 mill/uL (4.7-6.1); RED CELL DISTRIBUTION WIDTH 20.6 % (11.6-14.6)
[2019-06-20 08:00] VITALS: BP 90/36
[2019-06-20] MEDS: CARVEDILOL 3.125 MG TABLET PO SCH ×2 (09:00→21:00)
[2019-06-20] MEDS: LISINOPRIL 2.5MG TABLET PO SCH (09:00)
[2019-06-20] MEDS: ENOXAPARIN 30MG/0.3ML SYR SUBCUT SCH (09:43)
[2019-06-20] MEDS: FLUDROCORTISONE ACETATE 0.1MG TABLET PO SCH (09:43)
[2019-06-20] MEDS: MULTIVITAMINS,THER W-MINERALS TABLET PO SCH (09:43)
[2019-06-20] MEDS: FOLIC ACID 1MG TABLET PO SCH (09:43)
[2019-06-20 12:00] VITALS: BP 99/52
[2019-06-20 16:00] VITALS: BP 87/38
[2019-06-20] MEDS ORDERED: AZITHROMYCIN 500 MG TABLET PO SCH (21:00)
[2019-06-21] VITALS: BP 110/48
[2019-06-21 04:00] VITALS: BP 113/38
[2019-06-21] MEDS: CEFTRIAXONE 1 G PREMIX 50 ML IV SCH (05:31)
[2019-06-21] MEDS: LISINOPRIL 2.5MG TABLET PO SCH (09:00)
[2019-06-21] MEDS: ENOXAPARIN 30MG/0.3ML SYR SUBCUT SCH (09:27)
[2019-06-21] MEDS: FOLIC ACID 1MG TABLET PO SCH (09:27)
[2019-06-21] MEDS: FLUDROCORTISONE ACETATE 0.1MG TABLET PO SCH (09:27)
[2019-06-21] MEDS: MULTIVITAMINS,THER W-MINERALS TABLET PO SCH (09:30)
[2019-06-21 11:04] VITALS: BP 107/66
== END 2019-06-21 11:05 | DRG 871 ==
LOC: ER 21:19 → 6WST 23:29 → ENRESERV 23:36 → CVICU 05-24 22:22 → 7WST 06-05 14:34
PROVIDERS: ADMIT Internal Medicine Nephrology; ATTEND Internal Medicine
PROC: 5A1D70Z Performance of Urinary Filtration, Intermittent, Less than 6 Hours Per Day (ICD-10-PCS; principal; 2019-05-20)
PROC: 5A1D70Z Performance of Urinary Filtration, Intermittent, Less than 6 Hours Per Day (ICD-10-PCS; 2019-05-20)
PROC: 5A1D70Z Performance of Urinary Filtration, Intermittent, Less than 6 Hours Per Day (ICD-10-PCS; 2019-05-24)
PROC: 05HY33Z Insertion of Infusion Device into Upper Vein, Percutaneous Approach (ICD-10-PCS; 2019-05-25)
PROC: 5A1D70Z Performance of Urinary Filtration, Intermittent, Less than 6 Hours Per Day (ICD-10-PCS; 2019-05-26)
PROC: 5A1D70Z Performance of Urinary Filtration, Intermittent, Less than 6 Hours Per Day (ICD-10-PCS; 2019-05-30)
PROC: 5A1D70Z Performance of Urinary Filtration, Intermittent, Less than 6 Hours Per Day (ICD-10-PCS; 2019-06-03)
PROC: 5A1D70Z Performance of Urinary Filtration, Intermittent, Less than 6 Hours Per Day (ICD-10-PCS; 2019-06-04)
PROC: 5A1D70Z Performance of Urinary Filtration, Intermittent, Less than 6 Hours Per Day (ICD-10-PCS; 2019-06-06)
PROC: 5A1D70Z Performance of Urinary Filtration, Intermittent, Less than 6 Hours Per Day (ICD-10-PCS; 2019-06-09)
PROC: 5A1D70Z Performance of Urinary Filtration, Intermittent, Less than 6 Hours Per Day (ICD-10-PCS; 2019-06-11)
PROC: 5A1D70Z Performance of Urinary Filtration, Intermittent, Less than 6 Hours Per Day (ICD-10-PCS; 2019-06-13)
PROC: 5A1D70Z Performance of Urinary Filtration, Intermittent, Less than 6 Hours Per Day (ICD-10-PCS; 2019-06-15)
PROC: 5A1D70Z Performance of Urinary Filtration, Intermittent, Less than 6 Hours Per Day (ICD-10-PCS; 2019-06-17)
PROC: 5A1D70Z Performance of Urinary Filtration, Intermittent, Less than 6 Hours Per Day (ICD-10-PCS; 2019-06-21)
DX: A41.9 Sepsis, unspecified organism (principal); N18.6 End stage renal disease; E43 Unspecified severe protein-calorie malnutrition; G92 Toxic encephalopathy; G82.50 Quadriplegia, unspecified; R65.21 Severe sepsis with septic shock; M86.9 Osteomyelitis, unspecified; E87.1 Hypo-osmolality and hyponatremia; I13.2 Hypertensive heart and chronic kidney disease with heart failure and with stage 5 chronic kidney disease, or end stage renal disease; I50.22 Chronic systolic (congestive) heart failure; I47.1 Supraventricular tachycardia; D63.8 Anemia in other chronic diseases classified elsewhere; E87.5 Hyperkalemia; L97.529 Non-pressure chronic ulcer of other part of left foot with unspecified severity; E11.69 Type 2 diabetes mellitus with other specified complication; E11.621 Type 2 diabetes mellitus with foot ulcer; I25.5 Ischemic cardiomyopathy; A08.4 Viral intestinal infection, unspecified; J44.9 Chronic obstructive pulmonary disease, unspecified; E11.22 Type 2 diabetes mellitus with diabetic chronic kidney disease; L89.159 Pressure ulcer of sacral region, unspecified stage; E11.51 Type 2 diabetes mellitus with diabetic peripheral angiopathy without gangrene; L89.519 Pressure ulcer of right ankle, unspecified stage; E78.00 Pure hypercholesterolemia, unspecified; F03.90 Unspecified dementia, unspecified severity, without behavioral disturbance, psychotic disturbance, mood disturbance, and anxiety; I08.3 Combined rheumatic disorders of mitral, aortic and tricuspid valves; I25.10 Atherosclerotic heart disease of native coronary artery without angina pectoris; I48.0 Paroxysmal atrial fibrillation; L89.899 Pressure ulcer of other site, unspecified stage; I49.1 Atrial premature depolarization; I49.3 Ventricular premature depolarization; R74.0 Nonspecific elevation of levels of transaminase and lactic acid dehydrogenase [LDH]; R26.9 Unspecified abnormalities of gait and mobility; N40.0 Benign prostatic hyperplasia without lower urinary tract symptoms; R13.10 Dysphagia, unspecified; Z79.82 Long term (current) use of aspirin; Z91.19 Patient's noncompliance with other medical treatment and regimen; I25.2 Old myocardial infarction; Z68.23 Body mass index [BMI] 23.0-23.9, adult; Z86.73 Personal history of transient ischemic attack (TIA), and cerebral infarction without residual deficits; Z99.2 Dependence on renal dialysis; Z74.01 Bed confinement status; Z90.89 Acquired absence of other organs; Z79.899 Other long term (current) drug therapy
CPT/HCPCS: 36415; 36600; 70551; 71045; 80048; 80051; 80053; 82140; 82375; 82533; 82607; 82728; 82746; 82805; 82962; 83036; 83540; 83550; 83735; 84100; 84134; 84145; 84439; 84443; 84481; 84484; 85025; 85027; 86359; 86360; 86701; 86702; 86705; 86709; 86803; 87340; 87389; 87493; 92610; 93005; 93306; 93923; 93970; 94640; 96361; 96374; 96375; 97162; 97164; 97166; 97530; 99285; A6261; C1893; J0153; J0456; J0696; J0885; J1160; J1650; J1815; J2060; J2270; J2370; J2405; J2543; J3490; J7030; J7040; J7060; J7620; J7626; P9047; A4315

== ENCOUNTER 2019-06-24 09:36 | Inpatient (IN) | payer MEDICARE, MEDICAID ==
[~2019-06-24] VITALS: Ht 167.6 cm; Wt 68.0 kg
[2019-06-24] MEDS ORDERED: SODIUM CHLORIDE 0.9% 1000ML BAG (SEPSIS BOLUS) IV ONE (10:00)
[2019-06-24] MEDS ORDERED: VANCOMYCIN 1 G PREMIX 200 ML IV ONE ×2 (10:00→12:30)
[2019-06-24] MEDS ORDERED: PIPERACILLIN/TAZ 3.375G PREMIX 50 ML IV ONE ×2 (10:00→12:30)
[2019-06-24 10:50] LABS: BASOPHILS % 0.3 % (0.0-2.0); EOSINOPHILS % 0.6 % (0.0-5.0); HEMATOCRIT. 29.3 % (42.0-52.0); LYMPHOCYTES % 51.2 % (20.0-50.0); MEAN CORPUSCULAR HEMOGLOBIN 35.6 pg (28.0-32.0); MEAN CORPUSCULAR VOLUME 104.5 fL (80.0-94.0); MEAN PLATELET VOLUME 8.6 fl (7.4-10.4); MONOCYTES % 7.1 % (2.0-8.0); NEUTROPHILS % 40.8 % (40.0-76.0); PLATELET 193 x1000/uL (130-400); RED BLOOD CELL COUNT 2.81 mill/uL (4.7-6.1); RED CELL DISTRIBUTION WIDTH 18.9 % (11.6-14.6)
[2019-06-24 10:57] LABS: CHLORIDE 98 mEq/L (98-107); INR 1.1; PROTHROMBIN TIME 11.1 sec (9.6-11.0)
[2019-06-24 13:03] LABS: COLOR URINE DARK YELLOW (YELLOW)
[2019-06-24 13:04] LABS: CLARITY URINE CLOUDY (CLEAR); SPECIFIC GRAVITY URINE 1.019 (1.005-1.030)
[2019-06-24 13:05] LABS: KETONES URINE TRACE (NEGATIVE); PROTEIN URINE 2+ (NEGATIVE)
[2019-06-24 13:06] LABS: LEUKOCYTE ESTERASE URINE 2+ (NEGATIVE); NITRITE URINE NEGATIVE (NEGATIVE); OCCULT BLOOD URINE 1+ (NEGATIVE); UROBILINOGEN URINE 0.2 E.U./dL (0.2-1.0)
[2019-06-24] MEDS ORDERED: SODIUM CHLORIDE 0.9% 1,000 ML IV ONE ×2 (13:58→15:18)
[2019-06-24] MEDS ORDERED: HALOPERIDOL LACTATE 5MG/ML VIAL IM ONE (14:00)
[2019-06-24] MEDS ORDERED: NOREPINEPHRINE 4 MG in DEXT 5% WATER 250 ML IV STA (15:18)
[2019-06-24] MEDS ORDERED: NOREPINEPHRINE 4MG/250ML PMX 250 ML IV ONE (15:30)
[2019-06-24] MEDS ORDERED: NOREPINEPHRINE 4MG/250ML PMX 250 ML IV PRN (18:25)
[2019-06-24] MEDS ORDERED: DIPHENHYDRAMINE 50MG/ML VIAL IV PRN (23:00)
[2019-06-24] MEDS ORDERED: IPRATROPIUM/ALBUTEROL 0.5-3(2.5)MG/3ML NEB HHN PRN (23:00)
[2019-06-24] MEDS ORDERED: CLONIDINE 0.1MG TABLET PO PRN (23:00)
[2019-06-24] MEDS ORDERED: ACETAMINOPHEN 325MG TABLET PO PRN (23:00)
[2019-06-24] MEDS ORDERED: ONDANSETRON HCL 4MG/2ML INJ IV PRN (23:00)
[2019-06-24] MEDS ORDERED: HALOPERIDOL LACTATE 5MG/ML VIAL IM PRN (23:00)
[2019-06-25] MEDS: SODIUM CHLORIDE 0.9% INJ 3ML FLUSH IVF SCH ×2 (06:00→14:00)
[2019-06-25] MEDS ORDERED: GUAIFENESIN-DM 200MG-20MG/10ML UDC PO PRN (13:15)
[2019-06-25 17:27] LABS: BASOPHILS % 0.3 % (0.0-2.0); EOSINOPHILS % 0.1 % (0.0-5.0); HEMOGLOBIN. 10.5 g/dL (14.0-18.0); LYMPHOCYTES % 43.6 % (20.0-50.0); MEAN CORPUSCULAR HEMOGLOBIN 35.3 pg (28.0-32.0); MEAN CORPUSCULAR VOLUME 107.1 fL (80.0-94.0); MEAN PLATELET VOLUME 8.9 fl (7.4-10.4); MONOCYTES % 7.9 % (2.0-8.0); NEUTROPHILS % 48.1 % (40.0-76.0); PLATELET 177 x1000/uL (130-400); RED BLOOD CELL COUNT 2.98 mill/uL (4.7-6.1); RED CELL DISTRIBUTION WIDTH 19.1 % (11.6-14.6)
[2019-06-25] MEDS ORDERED: SODIUM BICARBONATE 8.4% 1 MEQ/ML 50ML SYR IV NR (18:30)
[2019-06-25] MEDS ORDERED: SODIUM POLYSTYRENE SULFONATE 15 G/60 ML BOT PO NR (18:30)
[2019-06-25] MEDS ORDERED: INSULIN REGULAR (HUMULIN R) 300UNITS/3ML IV NR (18:30)
[2019-06-25] MEDS ORDERED: DEXTROSE 50% WATER 50ML SYRINGE IV NR (18:30)
[2019-06-26] VITALS (33 sets, daily range): BP systolic 47–190; BP diastolic 24–136
[2019-06-26] MEDS ORDERED: PIPERACILLIN/TAZ 2.25G PREMIX 50 ML IV SCH (02:15)
[2019-06-26] MEDS ORDERED: PIPERACILLIN/TAZ 2.25G PREMIX 50 ML IV NR (02:30)
[2019-06-26 05:36] LABS: BASOPHILS % 0.2 % (0.0-2.0); EOSINOPHILS % 0.1 % (0.0-5.0); HEMATOCRIT. 30.9 % (42.0-52.0); HEMOGLOBIN. 10.2 g/dL (14.0-18.0); MEAN CORPUSCULAR HEMOGLOBIN 35.4 pg (28.0-32.0); MEAN CORPUSCULAR VOLUME 107.3 fL (80.0-94.0); MEAN PLATELET VOLUME 9.4 fl (7.4-10.4); MONOCYTES % 7.4 % (2.0-8.0); NEUTROPHILS % 65.3 % (40.0-76.0); PLATELET 192 x1000/uL (130-400); RED BLOOD CELL COUNT 2.88 mill/uL (4.7-6.1)
[2019-06-26] MEDS ORDERED: SODIUM BICARBONATE 8.4% 1 MEQ/ML 50ML SYR IV SCH (08:30)
[2019-06-26] MEDS ORDERED: DEXTROSE 50% WATER 50ML SYRINGE IV SCH (08:45)
[2019-06-26] MEDS ORDERED: INSULIN REGULAR (HUMULIN R) 300UNITS/3ML IV SCH (08:45)
[2019-06-26] MEDS ORDERED: CALCIUM CHLORIDE 1,000 MG in DEXT 5% WATER 90 ML IV SCH (09:00)
[2019-06-26] MEDS: PHENYLEPHRINE 40 MG in DEXT 5% WATER 246 ML IV PRN ×2 (14:45→18:25)
[2019-06-26] MEDS ORDERED: DEXTROSE 50% WATER 50ML SYRINGE IV PRN (15:00)
[2019-06-26] MEDS ORDERED: SODIUM BICARBONATE 8.4% 1 MEQ/ML 50ML SYR IV NR (15:45)
[2019-06-26] MEDS ORDERED: BLOOD SUGAR DIAGNOSTIC STRIP TEST SCH (16:30)
[2019-06-26] MEDS ORDERED: INSULIN LISPRO 100 UNITS/ML SUBCUT SCH (17:00)
[2019-06-26] MEDS ORDERED: PIPERACILLIN/TAZOBACTAM 2.25 G in DEXTROSE 5% WATER 50 ML IV SCH (18:00)
[2019-06-26] MEDS ORDERED: VANCOMYCIN 750 MG PREMIX 150 ML IV SCH (21:00)
[2019-06-27] MEDS ORDERED: FAMOTIDINE 20MG/2ML VIAL IV SCH (09:00)
[2019-06-27 09:48] LABS: BG BASE EXCESS -20.4 mmol/L (-2.0-2.0); BG CARBOXYHEMOGLOBIN 0.1 % (0.5-1.5); BG DEOXYHEMOGLOBIN 3.8 % (0.0-5.0); BG FRACTION INSPIRED OXYGEN 21; BG HCO3 ACT 4.5 mmol/L (22.0-26.0); BG METHEMOGLOBIN 0.1 % (0.0-1.5); BG OXYGEN SATURATION 96.2 % (92.0-98.5); BG PCO2 10.8 mmHg (35.0-45.0); BG PH 7.241 (7.350-7.450); BG PO2 109.6 mmHg (75.0-100.0); BG SAMPLE SITE RIGHT RADIAL; BG TOTAL HEMOGLOBIN 10.5 g/dL (12.0-18.0); BG VENT MODE ROOM AIR
== END 2019-06-26 20:57 | disposition expired ==
LOC: ER 09:36 → EDBEDREQ 12:18 → MICUSO 15:19 → EDBEDREQ 15:23 → EDBEDREQSVC 15:23 → CANRESERV 06-26 07:38 → ENRESERV 06-26 07:38
PROVIDERS: ADMIT Internal Medicine; ATTEND Internal Medicine
PROC: 5A12012 Performance of Cardiac Output, Single, Manual (ICD-10-PCS; 2019-06-24)
PROC: 5A1D70Z Performance of Urinary Filtration, Intermittent, Less than 6 Hours Per Day (ICD-10-PCS; principal; 2019-06-26)
DX: I21.4 Non-ST elevation (NSTEMI) myocardial infarction (principal); G93.41 Metabolic encephalopathy; N18.6 End stage renal disease; E87.2 Acidosis; I42.9 Cardiomyopathy, unspecified; I12.0 Hypertensive chronic kidney disease with stage 5 chronic kidney disease or end stage renal disease; B20 Human immunodeficiency virus [HIV] disease; E87.8 Other disorders of electrolyte and fluid balance, not elsewhere classified; E11.22 Type 2 diabetes mellitus with diabetic chronic kidney disease; F03.90 Unspecified dementia, unspecified severity, without behavioral disturbance, psychotic disturbance, mood disturbance, and anxiety; E87.5 Hyperkalemia; Z99.2 Dependence on renal dialysis; Z86.73 Personal history of transient ischemic attack (TIA), and cerebral infarction without residual deficits; I95.9 Hypotension, unspecified; I46.9 Cardiac arrest, cause unspecified
CPT/HCPCS: 36415; 36600; 71045; 80048; 80053; 81003; 82010; 82375; 82805; 82962; 83605; 84132; 84145; 84484; 85025; 93005; 99291; J1200; J1630; J1815; J2370; J2543; J3370; J3490; J7030; J7060